=== PATIENT | female | born 1970 | race Caucasian/White ===

== ENCOUNTER 2022-06-14 13:45 | Outpatient (RCR) | payer OTHER, SELFPAY | END 2022-07-28 14:18 | disposition home or self-care (01) | PROVIDERS: Visit Provider Physician Assistant | DX: M54.50 Low back pain, unspecified (principal); Z51.89 Encounter for other specified aftercare | CPT/HCPCS: 97110; 97140; 97162; J0702 ==

== ENCOUNTER 2022-07-26 07:57 | Outpatient (CLI) | payer OTHER, SELFPAY ==
--- OUTSIDE RECORDS SUMMARY | 2022-07-26 08:00 | XMS_ITS | Clinical Summary ---
:1970 Author Organization [employer] [facility] [facility] [place] [address] Care Team Providers Name Role Phone Leonora Anamaria Phan DO Primary Care Provider Allergies Active Allergy Reactions Severity Noted Date Comments Adhesive Rash 10/14/2015 Tramadol Itching 05/13/2019 Unlisted Allergen (Include Runny Nose, Itching 010 Seasonal allergies Detail In Comments) Medications Medication Sig Dispensed Refills Start End Status Date Date MULTIVITAMIN TAB take 1 tablet 0 07/18/20 Active by oral route 07 once daily with food meclizine (ANTIVERT) Take 1 tablet 45 tablet 0 06/07/20 Active 25 mg by mouth 3 16 tabletIndications: times daily if Dizziness needed. cholecalciferol Take 1 capsule 0 10/23/19 Active (VITAMIN D) 1,000 by mouth once 18 unit capsule daily. Magnesium 200 mg tab Take 1 tablet 0 04/19/20 Active by mouth once 18 daily. vitamin B complex (B Take 1 tablet 0 09/19/20 Active COMPLEX 1) tablet by mouth once 18 daily. nicotine (COMMIT) 2 Place 1 Lozenge 108 Lozenge 2 05/30/20 Active mg in mouth, 19 lozengeIndications: between cheek & Tobacco use gum every hour while awake as needed for Nicotine Craving. omeprazole (PRILOSEC) TAKE 1 CAPSULE 90 capsule 0 06/24/20 Active 20 mg Delayed-Release BY MOUTH EVERY 19 capsuleIndications: DAY BEFORE A Abdominal pain, MEAL epigastric Echinacea 500 mg cap Take by mouth. 0 12/19/19 Active 20 calcium carbonate Take 1 tablet 0 05/22/20 Active (CALCIUM 600) 600 mg by mouth once 20 calcium (1,500 mg) daily. tablet durable medical DonJoy Hinged Lateral J Brace, Medium, Left 0 07/13/20 Active equipment [id number] Length of Use: 99 months 20 (DME)Indications: Chondromalacia of left knee diclofenac topical APPLY 2 G 1 Tube 2 12/18/19 A ctive (VOLTAREN) 1 % TOPICALLY TO 21 gelIndications: Left AFFECTED knee pain, AREA(S) 4 TIMES unspecified DAILY chronicity Ferrous Gluconate 324 Take 1 Tablet 0 04/26/20 Active mg (38 mg iron) (324 mg) by 21 tablet mouth once daily with a meal. ascorbic acid, Take 1 Tablet 0 04/26/20 A ctive vitamin C, (Vitamin (500 mg) by 21 C) 500 mg tablet mouth once daily. Bacillus coagulans Chew by mouth. 0 04/26/20 Active (Digestive Advantage 21 Probio-Pre) 400 million cell chew cetirizine (ZYRTEC) TAKE 1 TABLET 90 Tablet 0 08/12/20 Active 10 mg BY MOUTH ONCE 21 tabletIndications: DAILY Seasonal allergic rhinitis due to pollen DULoxetine (CYMBALTA) Take 1 Capsule 90 capsule. 3 09/21/20 Active 60 mg Delayed-release (60 mg) by 21 capsuleIndications: mouth once Fibromyalgia daily. busPIRone (BUSPAR) 10 Take 1 Tablet 360 tablet. 3 09/21/20 Active mg tabletIndications: (10 mg) by 21 MELECIO (generalized mouth 2 times anxiety disorder) daily. levothyroxine Take 1 Tablet 90 Tablet 3 11/13/19 Ac tive (SYNTHROID) 100 mcg (100 mcg) by 22 tabletIndications: mouth before Subclinical breakfast. hypothyroidism ipratropium (ATROVENT INSTILL 2 90 mL 2 12/03/19 Active NASAL) 42 mcg (0.06 SPRAYS IN EACH 22 %) nasal NOSTRIL THREE sprayIndications: TIMES A DAY Chronic rhinitis NEEDED SUMAtriptan (IMITREX) TAKE 1/2 TABLET 9 Tablet 5 12/03/19 Active 100 mg BY MOUTH EVERY 22 tabletIndications: 2 HOURS Migraine NEEDED FOR MIGRAINE *MAX DAILY DOSE: 200MG* propranoloL (INDERAL) Take 1 Tablet 180 Tablet 3 03/01/20 Active 10 mg (10 mg) by 22 tabletIndications: mouth 2 times Migraine syndrome daily. pregabalin (LYRICA) TAKE ONE (1) 60 Capsule 3 05/12/20 Active 150 mg CAPSULE BY 22 capsuleIndications: MOUTH TWICE Fibromyalgia DAILY *NEW DOSE* loperamide (IMODIUM) Take 4mg by 60 capsule 1 04/03/20 Discontinued 2 mg mouth with 1st 022 (*Pat ient capsuleIndications: loose stool, states no Chronic diarrhea then 2mg with longer each subsequent taki ng/Not on loose stool. sending Max 16 mg in 24 faci lity list) hrs psyllium powd Take 1 tsp by 1 Container 11 01/10/20 Discontinued mouth once 022 (*Patient daily if needed stat es no for longer Constipation. taking /Not on sending facility l ist) docusate (COLACE) 100 TK 1 C PO BID 0 11/11/1906/09 Discontinued mg capsule FOR 022 (*Patient CONSTIPATION states no longer taking/Not on sending facility l ist) methylPREDNISolone Take by mouth 21 Tablet 0 04/05/20 Discontinued (MedrolKevin,) 4 mg as instructed (*Patient tabletIndications: per packaging. states no Acute midline low lo nger back pain with takin g/Not on left-sided sciatica sending facility l ist) cyclobenzaprine Take 1-2 30 Tablet 2 04/05/20 Disc ontinued (FLEXERIL) 5 mg Tablets (5-10 022 (*Med tabletIndications: mg) by mouth 3 complete/Regim Acute midline low times daily if en back pain with needed for comp lete/Level left-sided sciatica Muscle Spasm. of care change) methylPREDNISolone Take by mouth 21 Tablet 0 04/29/20 Discontinued (Medrol Kevin,) 4 mg as instructed (*Patient tabletIndications: per packaging. 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 Fibromyalgia 05/19/2014 Migraine 08/01/2013 Major depressive disorder, recurrent episode, unspecif ied 04/25/2007 Anxiety state, unspecified 04/25/2007 Allergic rhinitis, cause unspecified 11/04/2006 Resolved Problems Problem Noted Date Resolved Date Pericarditis 03/01/2022 03/01/2022 Subclinical hypothyroidism 10/07/2014 12/21/2020 Encounters Date Type Specialty Care Team Description 07/21/2022 Telephone Pavel Morgan Letter For Wo rk MD Anastacio (Restrictions a nd return to work) 07/11/2022 Telephone Pavel Morgan Results (MRI) MD Anastacio 07/07/2022 Ancillary Procedure 07/07/2022 Travel 07/01/2022 Telephone Lashanda Gamboa Results (LA BS) LELE Almanza 06/27/2022 Office Visit Pavel Morgan Musculoskelet al Problem MD Anastacio (Low back pain ) 06/27/2022 Office Visit Lashanda Gamboa Fatigue (Ve ry tired x 1 LELE Almanza week, sleeping a lot / nausea also) 06/27/2022 Travel 05/12/2022 Refill Anamaria Lea Refill Reque st Emilie, DO (Pregabalin) 04/29/2022 Office Visit Marita Hathaway Back Pain (barbara oing back LELE Lema pain ) 04/29/2022 Travel 04/28/2022 Telephone Reina Mathews PA from Last 3 Months Immunizations Name Administration Dates Next Due AMB Influenza, IIV3 (Age >=3 07/10/2013 years)(Flu Clinic Only) COVID-19 vaccine ([employer] 12/01/2020, 11/10/2020 30mcg/0.3mL) PF, MDV Hepatitis B (Adult) 02/18/2010, 09/09/1994, 08/10/1994 Influenza, IIV3 (Age >=3 years) 07/10/2013, 07/15/2010, 08/10 Influenza, IIV4 08/27/2021, 06/29/2020, 06/09/2019, 06/08/2018, 07/20/2017, 06/23/2016, 08/03/2015, 07/03/2014 Td (Age >=7 Years) 05/13/2019, 01/02/2003 Tdap 12/28/2010 Zoster (Shingrix-RZV, recombinant) 08/27/2021 Family History Medical History Relation Name Comments Depression Brother 1 Hypertension Brother 1 possibly high ch olesterol as well as depression Depression Brother 2 COPD Father Thyroid Disease Maternal Aunt 1 Thyroid Disease Maternal Aunt 2 Asthma Maternal Grandmother Stroke Maternal Grandmother Diabetes Maternal Uncle type II Cancer Mother nasopharyngeal Hypothyroidism Mother Other cancer Mother nasal pharnyx ca ncer Diabetes Paternal Aunt type II Depression Sister Seizures Son 1 epileptic No Known Problems Son 2 Cancer-breast No Family History Relation Name Status Comments Brother 1 Alive Brother 2 Alive Father Alive Maternal Aunt 1 Maternal Aunt 2 Maternal Grandmother Maternal Uncle Mother Paternal Aunt Sister Alive Son 1 Alive Son 2 Alive Social History Tobacco Use Types Packs/Day Years Used Date Current Every Day Smoker Cigarettes 0.25 20 Smokeless Tobacco: Never Used Tobacco Cessation: Ready to Quit: No; Co unseling Given: Yes Comments: trying to quit 05/15/20 off and on since 20s Alcohol Use Standard Drinks/Week Comments Yes 0 (1 standard drink = 0.6 oz pure alcoho l) rarely Alcohol Habits Answer Date Recorded How often do you have a drink containing alcohol? 2-4 times a month 05/30/2019 How many drinks containing alcohol do you have on a 1 or 2 05/30/2019 typical day when you are drinking? How often do you have six or more drinks on one Never 03/25/2020 occasion? Comment: rarely 05/17/2021 Sex Assigned at Date Recorded Not on file COVID-19 Exposure Response Date Recorded In the last 10 days, have you been in contact with No / Unsu re 07/07/2022 9:31 AM CDT someone who was confirmed or suspected to have Coronavirus/COVID-19? Obstetrics History Para Term AB IAB SAB Ectopic Multiple Living Live Births 4 2 2 0 2 1 1 0 0 2 2 Date Outcome GA Total Labor/2nd/3rd Weight Sex Delivery Anes PTL Yumiko A 1 A5 Name Clin Labor IAB SAB 1991 Term 4.08 kg Vag Cyndie (9 lb) ng Comments: episiotomy 1994 Term 3.18 kg (7 lb) Vag Living Last Filed Vital Signs Vital Sign Reading Time Taken Comments Blood Pressure 117/73 06/27/2022 1:37 PM CDT Pulse 67 06/27/2022 1:37 PM CDT Temperature 36.9 ??C (98.4 ??F) 06/27/2022 1:37 PM CDT Respiratory Rate 16 07/12/2021 1:44 PM CDT Oxygen Saturation 99% 06/27/2022 1:37 PM CDT Inhaled Oxygen Concentration - - Weight 72.1 kg (159 lb) 06/27/2022 1:37 PM CDT Height 166 cm (5' 5.35) 06/27/2022 11:47 AM CDT Body Mass Index 26.17 06/27/2022 11:47 AM CDT Plan of Treatment Upcoming Encounters Date Type Specialty Care Team Description 07/26/2022 Office Visit Pavel Morgan MD [address] [place], [place] [address] (Wo rk) Health Maintenance Due Date Last Done Comments Pneumococcal series for age 19-64 1976 (1 - PCV) Hepatitis C screening for age 1210/06/1988 18-79 Zoster (shingles) series for age 0110/22/2021 08/27/2021 50+ (2 of 2) Lipids for age 45-75 11/10/2021 11/10/2016, 11/22/2012 COVID-19 vaccine series (4 - 11/18/2021 09/23/2021, 021, Booster for Pfizer series) 11/10/2020 Influenza for age 50-64 06/09/2022 08/27/2021, 06/29/2020, 06/09/2019, Additional history exists Mammogram for age 45-75 08/27/2022 08/27/2021, 07/31/2020, 07/16/2020, Additional history exists Depression screening for age 12+ 09/21/2022 09/21/2021, 06/2020, 07/16/2020, Additional history exists BMI (ht and wt on same day) for 06/27/2023 06/27/2022, 02/07, age 18+ 01/26/2021, Additional history exists Pap test for age 21-65 05/30/2024 05/30/2019, 05/30/2019, 10/21/2015, Additional history exists Colonoscopy through age 75 04/14/2027 04/14/2017, 7, 04/14/2017 Tetanus booster 05/13/2029 05/13/2019, 12/28/2010, 01/02/2003 Tdap Completed 12/28/2010 Procedures Procedure Name Priority Date/Time Associated Diagnosis Comme nts MR SPINE LUMBAR WO Routine 07/07/2022 10:24 Left lumbar pain Results for this AM CDT Lumbar radiculopathy procedu re are in the results section. CBC WITH AUTO Routine 06/27/2022 12:41 Fatigue, unspecified Re sults for this DIFFERENTIAL PM CDT type procedure are i n the results section. HETEROPHILE Routine 06/27/2022 12:41 Fatigue, unspecified Res ults for this PM CDT type procedure are i n the results section. TSH Routine 06/27/2022 12:41 Fatigue, unspecified Res ults for this PM CDT type procedure are i n the results section. FERRITIN Routine 06/27/2022 12:41 Fatigue, unspecified Res ults for this PM CDT type procedure are i n the results section. COMP METABOLIC PANEL Routine 06/27/2022 12:41 Fatigue, unspeci fied Results for this PM CDT type procedure are i n the results section. CBC WITH AUTO Routine 06/27/2022 12:41 Fatigue, unspecified Re sults for this DIFFERENTIAL PM CDT type procedure are i n the results section. from Last 3 Months Results MR SPINE LUMBAR WO (07/07/2022 10:24 AM CDT) Anatomical Region Laterality Modality Spine, LUMBAR SPINE Magnetic Resonance Specimen (Source) Anatomical Collection Method Collection Time Re ceived Time Location / / Volume Laterality 07/08/2022 1:05 PM CDT Impressions 07/08/2022 1:05 PM CDT 1. Minimal left L4-5 foraminal narrowing. 2. Milder degenerative changes within th e remainder of the lumbar spine as outlined above. Dictated by Dexter Wolf MD @ 1:05:58 PM (Electronically Signed) Narrative 07/08/2022 1:05 PM CDT For Patients: ??As a result of the Cures Act, medical imaging exams and procedure report s are released immediately into your [facility] [employer] medical record. ??You may view this report before your referring provider. ??If you have questions, please contact your health care provider. INDICATION: Low back pain radiating down left leg. TECHNIQUE: Noncontrast sagittal and axial T1, T2, a nd sagittal STIR sequences are provided. No comparisons. FINDINGS: The overall stature, alignment and intri nsic marrow signal of the lumbar spine is within normal limits. Conus is normal. L1-2: Unremarkable. L2-3: Mild broad-based posterior disc bu lge results in no significant central canal or foraminal narrowing. L3-4: Minor posterior disc bulge results in no central canal or foraminal narrowing. L4-5: Left posterior paracentral disc he rniation with underlying annular tear effaces the ventral thecal sac but results in no central canal narrowing. Minimal left and no right foraminal narrowing. L5-S1: Unremarkable. Procedure Note Ren Wolf, - 07/08/2022Format ting of this note might be different from the original. For Patients: As a result of the Cures Act, medical imaging exams and procedure reports are released immediately into your electronic medical record. You may view this report before your referring provider. If you have questions, please contact yo health care provider. INDICATION: Low back pain radiating down left leg. TECHNIQUE: Noncontrast sagittal and axial T1, T2, a nd sagittal STIR sequences are provided. No comparisons. FINDINGS: The overall stature, alignment and intri nsic marrow signal of the lumbar spine is within normal limits. Conus is normal. L1-2: Unremarkable. L2-3: Mild broad-based posterior disc bu lge results in no significant central canal or foraminal narrowing. L3-4: Minor posterior disc bulge results in no central canal or foraminal narrowing. L4-5: Left posterior paracentral disc he rniation with underlying annular tear effaces the ventral thecal sac but results in no central canal narrowing. Minimal left and no right foraminal narrowing. L5-S1: Unremarkable. IMPRESSION: 1. Minimal left L4-5 foraminal narrowing . 2. Milder degenerative changes within th e remainder of the lumbar spine as outlined above. Dictated by Dexter Wolf MD @ 2 1:05:58 PM (Electronically Signed) Pavel Morgan MD MR (ABNORMAL) CBC WITH AUTO DIFFERENTIAL (06/27/2022 12:41 PM CDT) [facility] Method Time Signature WHITE BLOOD 12.2 (H) 4.5 - 06/27/2022 [facility] COUNT 11.0 1:16 [facility] mm RED BLOOD COUNT 4.53 4.00 - 06/27/2022 [facility] 5.20 1:16 PM CDT [facility] CLINIC HEMOGLOBIN 14.6 12.0 - 06/27/2022 [facility] 16.0 g/dL 1:16 PM [facility] HEMATOCRIT 41.7 33.0 - 06/27/2022 [facility] 51.0 % 1:16 PM [facility] MCV 92 80 - 100 06/27/2022 [facility] fL 1:16 PM CDT [facility] MCH 32.2 26.0 - 06/27/2022 [facility] 34.0 pg 1:16 PM T [facility] MCHC 35.0 32.0 - 06/27/2022 [facility] 36.0 g/dL 1:16 PM [facility] RDW 13.5 11.5 - 06/27/2022 [facility] 15.5 % 1:16 PM T [facility] PLATELET COUNT 294 140 - 440 06/27/2022 [facility] thou/cu 1:16 PM [facility] CLINIC MPV 10.0 6.5 - 06/27/2022 [facility] 11.0 fL 1:16 PM T [facility] % NEUT 78.2 % 06/27/2022 [facility] 1:16 PM CDT [facility] % LYMPH 14.8 % 06/27/2022 [facility] 1:16 PM CDT [facility] % MONO 5.0 % 06/27/2022 [facility] 1:16 PM CDT [facility] % EOS 1.8 % 06/27/2022 [facility] 1:16 PM CDT [facility] % BASO 0.2 % 06/27/2022 [facility] 1:16 PM CDT [facility] ABSOLUTE 9.6 (H) 1.7 - 7.0 06/27/2022 [facility] NEUTROPHILS thou/cu 1:16 PM CDT [facility] CLINIC ABSOLUTE 1.8 0.9 - 2.9 06/27/2022 [facility] LYMPHOCYTES thou/cu 1:16 PM CDT [facility] CLINIC ABSOLUTE 0.6 <0.9 06/27/2022 [facility] MONOCYTES thou/cu 1:16 PM CDT [facility] CLINIC ABSOLUTE 0.2 <0.5 06/27/2022 [facility] EOSINOPHILS thou/cu 1:16 PM CDT [facility] CLINIC ABSOLUTE 0.0 <0.3 06/27/2022 [facility] BASOPHILS thou/cu 1:16 PM CDT [facility] CLINIC Specimen Anatomical Collection Method / Collection Time Recei alejo Time (Source) Location / Volume Laterality Blood BLOOD SPECIMEN / Venipuncture / 06/27/2022 12:41 06/27 Unknown Unknown PM CDT 12:41 PM CDT [facility] Performing Organization Address City/State/ZIP Code Phon e Number [facility] [address] [place] [address] TSH (06/27/2022 12:41 PM CDT) P athologist Signature TSH 2.30 0.35 - 4.94 06/28/2022 [facility] uIU/mL 9:47 PM CDT LABORATORY-CENTR AL LABORATORY Specimen Anatomical Collection Method / Collection Time Recei alejo Time (Source) Location / Volume Laterality Blood BLOOD SPECIMEN / Venipuncture / 06/27/2022 12:41 06/27 Unknown Unknown PM CDT 12:41 PM CDT Narrative [facility] LABORATORY-CENTRAL LABORAT ORY - 06/28/2022 9:47 PM CDT In Adults, TSH values between 5.00 and 10.00 uIU/ml do not necessarily indicate the presence of Hyp othyroidism. Correlation with clinical findings such as presence of goiter and/or Thyroperoxidase (TPO) Antibody ma y be helpful. For more information please refer to GERALDINE 20 ; [phone]: [phone]. Lashanda [facility] Performing Organization Address City/State/ZIP Code Phon e Number [facility] [address] [place] [address] LABORATORY-CENTRAL [address] LABORATORY HETEROPHILE (06/27/2022 12:41 PM CDT) athologist Signature HETEROPHILE Negative Negative 06/27/2022 [facility] 1:23 PM CDT [facility] Specimen Anatomical Collection Method / Collection Time Recei alejo Time (Source) Location / Volume Laterality Blood BLOOD SPECIMEN / Venipuncture / 06/27/2022 12:41 06/27 Unknown Unknown PM CDT 12:41 PM CDT Lashanda [facility] Performing Organization Address City/[facility]/ZIP Code Phon e Number [facility] [address] [place] [address] FERRITIN (06/27/2022 12:41 PM CDT) athologist [facility] FERRITIN 63.8 15.0 - 06/28/2022 [facility] 205.0 ng/mL 9:47 PM CDT LABORATORY-CENTR AL LABORATORY Specimen Anatomical Collection Method / Collection Time Recei alejo Time (Source) Location / Volume Laterality Blood BLOOD SPECIMEN / Venipuncture / 06/27/2022 12:41 06/27 Unknown Unknown PM CDT 12:41 PM CDT Lashanda [facility] Performing Organization Address City/State/ZIP Code Phon e Number [facility] [address] [place] [address] LABORATORY-CENTRAL [address] LABORATORY COMP METABOLIC PANEL (06/27/2022 12:41 PM CDT) P athologist Signature SODIUM 140 135 - 145 06/28/2022 [facility] mmol/L 9:26 PM CDT LABORATORY-[facility] TRAL LABORATORY POTASSIUM 4.9 3.5 - 5.0 06/28/2022 [facility] mmol/L 9:26 PM CDT LAB[facility]ATORY-[facility] TRAL LABORATORY CHLORIDE 107 98 - 110 06/28/2022 [facility] mmol/L 9:26 PM CDT LABORATORY-[facility] TRAL LABORATORY CO2,TOTAL 24 21 - 31 06/28/2022 [facility] mmol/L 9:26 PM CDT LABORATORY-[facility] TR[facility] LABORATORY ANION GAP 9 5 - 18 06/28/2022 [facility] 9:26 PM CDT LABORATORY-[facility] TRAL LABORATORY GLUCOSE 77 65 - 100 06/28/2022 [facility] mg/dL 9:26 PM CDT LABORATORY-[facility] TRAL LABORATORY CALCIUM 9.1 8.5 - 10.5 06/28/2022 [facility] mg/dL 9:26 PM CDT LAB[facility]ATORY-[facility] TR[facility] LABORATORY BUN 11 8 - 25 06/28/2022 [facility] mg/dL 9:26 PM CDT LABORATORY-[facility] TRAL LABORATORY CREATININE 0.75 0.57 - 06/28/2022 [facility] 1.11 mg/dL 9:26 PM CDT LABORATORY-[facility] TRAL LABORATORY BUN/CREAT RATIO 15 10 - 20 06/28/2022 [facility] 9:26 PM CDT LABORATORY-[facility] TRAL LABORATORY ALBUMIN 4.2 3.5 - 5.2 06/28/2022 [facility] g/dL 9:26 PM CDT LABORATORY-[facility] TRAL LABORATORY PROTEIN,TOTAL 6.6 6.0 - 8.0 06/28/2022 [facility] g/dL 9:26 PM CDT LABORATORY-[facility] TRAL LABORATORY GLOBULIN 2.4 2.0 - 3.7 06/28/2022 [facility] g/dL 9:26 PM CDT LABORATORY-[facility] TRAL LABORATORY A/G RATIO 1.8 1.0 - 2.0 06/28/2022 [facility] 9:26 PM CDT LABORATORY-[facility] TRAL LABORATORY BILIRUBIN,TOTAL 0.6 0.2 - 1.2 06/28/2022 [facility] mg/dL 9:26 PM CDT LABORATORY-[facility] TRAL LABORATORY ALK PHOSPHATASE 69 50 - 136 06/28/2022 [facility] IU/L 9:26 PM CDT LABORATORY-[facility] TRAL LABORATORY ALT (SGPT) 12 8 - 45 06/28/2022 [facility] IU/L 9:26 PM CDT LABORATORY-[facility] TRAL LABORATORY AST (SGOT) 14 2 - 40 06/28/2022 [facility] IU/L 9:26 PM CDT LABORATORY-[facility] TRAL LABORATORY eGFR >90 >90 06/28/2022 [facility] mL/min/1.7 9:26 PM CDT LABORATORY-[facility] 3m2 TRAL LABORATORY Comment: As of 2021, eGFR is calcu lated by the CKD-EPI creatinine equation without race adjustment. eGFR can be inf luenced by muscle mass, exercise, and diet. The reported eGFR is an estimation only and is only applicable if the renal function is stable. Specimen Anatomical Collection Method / Collection Time Recei alejo Time (Source) Location / Volume Laterality Blood BLOOD SPECIMEN / Venipuncture / 06/27/2022 12:41 06/27 Unknown Unknown PM CDT 12:41 PM CDT [facility] Performing Organization Address City/State/ZIP Code Phon e Number [facility] [address] [place] [address] LABORATORY-CENTRAL [address] LABORATORY from Last 3 Months Insurance Payer Benefit Plan / Subscriber ID Effective Dates Phone Addre ss Type Group WC WORKERS COMP WC RADHAWNGOZI [id number] 2014-Prese [id number] [employer] [facility] [address] [place] [address] WC WORKERS COMP WC [place] [id number] 2020-Prese 200 0 [employer] [facility] [address] [place] [address] WC WORKERS COMP WC SFM [id number] 2021-Prese [address] [place] [address] BLUE [employer]OSS [employer] OF [id number] 2014-Presen [address] [facility] [address] [place] [address] PREFERRED ONE PREFERRED ONE [id number] 2022-Presen [address] [place] [address] Diana Sandra Personal/Family Self [id number] (Home) [place] [id number] Diana Sandra Workers Comp Self [id number] [place] (Home) [place] [id number] Diana Sandra Comp Self [id number] ([place]) [place] [id number] Care Teams 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
== END 2022-07-26 07:58 | disposition home or self-care (01) ==
LOC: INJ CL 07:58
PROVIDERS: PCP Family Medicine; Visit Provider Family Medicine
DX: M54.16 Radiculopathy, lumbar region (principal); M51.36 Other intervertebral disc degeneration, lumbar region
CPT/HCPCS: 62323; J0702; Q9966

== ENCOUNTER 2022-09-14 14:23 | Emergency (ER) | payer OTHER, SELFPAY ==
[2022-09-14 14:33] VITALS: BP 161/107; PULSE 79; RESP 16; O2SAT 100; BMI 27.3
--- NOTE | 2022-09-14 14:47 | ED_ITS ---
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 Phani youssef, she did epidural steroids in the past she has had lumbar spondylosis and degenerative disc disease as well as disc herniations by her report. She describes couple days of significant low back pain. No radicular symptoms, no bowel or bladder continence fever chills perineal numbness patient presents to ED, she is apparently unable to get into the clinic. Related Data Home Medications Medication Instructions Recorded Confirmed duloxetine 60 mg capsule,delayed mg PO 09/14/22 release levothyroxine 100 mcg tablet mcg 09/14/22 pregabalin 150 mg capsule mg 09/14/22 pregabalin 75 mg capsule mg 09/14/22 propranolol 10 mg tablet mg 09/14/22 Previous Rx's Medication Instructions Recorded ketorolac 10 mg tablet 10 mg PO TID PRN pain 3 days #10 09/14/22 tabs prednisone 20 mg tablet 20 mg PO BID #10 tabs 09/14/22 tramadol 50 mg tablet 50 mg PO Q8H PRN pain #14 tabs 09/14/22 Allergies Allergy/AdvReac Type Severity Reaction Status Date / Time Unable to Assess Allergy Unverified 09/14/22 14:37 Review of Systems Status of ROS: Reports: 6 or more systems reviewed and unremarkable except as noted in History and below PFSH PFSH Social History Smoking Status: Never smoker Do you use any of these nicotine containing products: None Second hand tobacco smoke exposure: No How often do you have a drink containing alcohol: never How often do you have six or more drinks on one occasion: Never AUDIT-C Alcohol total score: 0 Non-prescribed substance use: denies use service: No Exam Narrative: Exam Narrative: Patient has mild palpable tenderness to her mid low back along her belt line, limited range of motion of flexion extension she has normal strength sensation lower extremities she has negative straight leg raise bilaterally She denies bowel or bladder symptoms Const: Vital Signs, click to edit/add: Vital Signs - 24 hr 09/14/22 14:33 Pulse Rate [Left P ulse Oximeter] 79 Respiratory Rate 16 Blood Pressure [Le ft Upper Arm] 161/107 H Pulse Oximetry 100 Oxygen Delivery Me thod Room Air Course Vital Signs Vital signs: Initial Vital Signs Pulse Rate 79 09/14/22 14:33 Pulse Rhythm 09/14/22 14:33 Pulse Strength 3+ Normal 09/14/22 14:33 Respiratory Rate 16 09/14/22 14:33 Blood Pressure 161/107 H 09/14/22 14:33 Blood Pressure Mean 125 09/14/22 14:33 Blood Pressure Position Sitting 09/14/22 14:33 Pulse Oximetry 100 09/14/22 14:33 Oxygen Delivery Method 09/14/22 14:33 Vital Signs Pulse Rate 79 09/14/22 14:33 Respiratory Rate 16 09/14/22 14:33 Blood Pressure 161/107 H 09/14/22 14:33 Pulse Oximetry 100 09/14/22 14:33 Oxygen Delivery Method 09/14/22 14:33 Pulse Rate 79 09/14/22 14:33 Respiratory Rate 16 09/14/22 14:33 Blood Pressure 161/107 H 09/14/22 14:33 Pulse Oximetry 100 09/14/22 14:33 Oxygen Delivery Method 09/14/22 14:33 Medical Decision Making MDM Narrative Medical decision making narrative: Patient has known lumbar spondylosis, does not have radicular component complaint of pain right now. I would recommend prednisone 50 mg orally and Tor adol 60 mg IM she needs to drive home. Will give her Toradol 10 mg t.i.d. p.r.n. over the next 3 days, Ultram 1-1 every 4-6 hours as needed 14 written for, also prednisone 20 mg b.i.d. x5 days. Off work for 2 days, recheck with primary care as needed or planned. Return to ED sooner if issues Discharge Plan Discharge Clinical Impression: Strain of lumbar region, Lumbar spondylosis Patient Disposition: Home, Self-Care Condition: Stable Additional Instructions: Light activity, ice to the back, gentle position of comfort, Toradol and prednisone as indicated, may use some Ultram periodically if it is really uncomfortable. Off work for 2 days, recheck as needed in the ER otherwise follow up with primary care in the next couple of days by phone for update Activity Level: Light activity Activity Detail: Off work x2 days Discharge Diet: Regular Prescriptions: New ketorolac 10 mg tablet 10 mg PO TID PRN (Reason: pain) 3 Days Qty: 10 0RF tramadol 50 mg tablet 50 mg PO Q8H PRN (Reason: pain) Qty: 14 0RF prednisone 20 mg tablet 20 mg PO BID Qty: 10 0RF No Action levothyroxine 100 mcg tablet propranolol 10 mg tablet duloxetine 60 mg capsule,delayed release(DR/EC) PO pregabalin 75 mg capsule pregabalin 150 mg capsule Follow Up/Referrals: Anamaria Lea DO [Primary Care Provider] - Stand Alone Forms: [facility] Info Instructions
--- OUTSIDE RECORDS SUMMARY | 2022-09-14 14:53 | XMS_ITS | Clinical Summary ---
:1970 Author Organization [employer] [facility] [place] [address] Care Team Providers Name Role Phone Leonora Anamaria Phan DO Primary Care Provider Allergies Active Allergy Reactions Severity Noted Date Comments Adhesive Rash 10/14/2015 Tramadol Itching 05/13/2019 Unlisted Allergen (Include Runny Nose, Itching 010 Seasonal allergies Detail In Comments) Medications Medication Sig Dispensed Refills Start End Date Status Date MULTIVITAMIN TAB take 1 tablet 0 Active by oral route 7 once daily with food meclizine Take 1 tablet 45 tablet 0 Active (ANTIVERT) 25 mg by mouth 3 6 tabletIndications: times daily Dizziness if needed. cholecalciferol Take 1 0 Acti ve (VITAMIN D) 1,000 capsule by 8 unit capsule mouth once daily. Magnesium 200 mg Take 1 tablet 0 Active tab by mouth once 8 daily. vitamin B complex Take 1 tablet 0 Active (B COMPLEX 1) by mouth once 8 tablet daily. nicotine (COMMIT) 2 Place 1 108 Lozenge 2 Active mg Lozenge in 9 lozengeIndications: mouth, Tobacco use between cheek & gum every hour while awake as needed for Nicotine Craving. omeprazole TAKE 1 90 capsule 0 Active (PRILOSEC) 20 mg CAPSULE BY 9 Delayed-Release MOUTH EVERY capsuleIndications: DAY BEFORE A Abdominal pain, MEAL epigastric Echinacea 500 mg Take by 0 Act sergey cap mouth. 0 calcium carbonate Take 1 tablet 0 Active (CALCIUM 600) 600 by mouth once 0 mg calcium (1,500 daily. mg) tablet durable medical DonJoy Hinged Lateral J Brace, Medium, Left 0 Active equipment [id number] [id number] Length of Use: 99 months 0 (DME)Indications: Chondromalacia of left knee diclofenac topical APPLY 2 G 1 Tube 2 A ctive (VOLTAREN) 1 % TOPICALLY TO 1 gelIndications: AFFECTED Left knee pain, AREA(S) 4 unspecified TIMES DAILY chronicity Ferrous Gluconate Take 1 Tablet 0 Active 324 mg (38 mg iron) (324 mg) by 1 tablet mouth once daily with a meal. ascorbic acid, Take 1 Tablet 0 A ctive vitamin C, (Vitamin (500 mg) by 1 C) 500 mg tablet mouth once daily. Bacillus coagulans Chew by 0 A ctive (Digestive mouth. 1 Advantage Probio-Pre) 400 million cell chew cetirizine (ZYRTEC) TAKE 1 TABLET 90 Tablet 0 Active 10 mg BY MOUTH ONCE 1 tabletIndications: DAILY Seasonal allergic rhinitis due to pollen ipratropium INSTILL 2 90 mL 2 Active (ATROVENT NASAL) 42 SPRAYS IN 2 mcg (0.06 %) nasal EACH NOSTRIL sprayIndications: THREE TIMES A Chronic rhinitis DAY NEEDED SUMAtriptan TAKE 1/2 9 Tablet 5 Active (IMITREX) 100 mg TABLET BY 2 tabletIndications: MOUTH EVERY 2 Migraine HOURS NEEDED FOR MIGRAINE *MAX DAILY DOSE: 200MG* busPIRone (BUSPAR) Take 1 Tablet 360 Tablet 3 Active 10 mg (10 mg) by 2 tabletIndications: mouth two MELECIO (generalized times daily. anxiety disorder) DULoxetine Take 1 90 Capsule 3 Active (CYMBALTA) 60 mg Capsule (60 2 Delayed-release mg) by mouth capsuleIndications: once daily. Fibromyalgia propranoloL Take 1 Tablet 180 Tablet 3 Act sergey (INDERAL) 10 mg (10 mg) by 2 tabletIndications: mouth two Migraine syndrome times daily. pregabalin (LYRICA) Take 1 60 Capsule 3 Active 150 mg Capsule (150 2 capsuleIndications: mg) by mouth Fibromyalgia two times daily. levothyroxine Take 1 Tablet 90 Tablet 3 Ac tive (SYNTHROID) 100 mcg (100 mcg) by 2 tabletIndications: mouth before Subclinical breakfast. hypothyroidism DULoxetine Take 1 90 capsule. 3 08/16/20 Discont inued (CYMBALTA) 60 mg Capsule (60 1 22 ( Reorder Delayed-release mg) by mouth ( E-cancel not capsuleIndications: once daily. sent)) Fibromyalgia busPIRone (BUSPAR) Take 1 Tablet 360 tablet. 3 08/16 Discontinued 10 mg (10 mg) by 1 22 (Reorder tabletIndications: mouth 2 times (E-cancel not MELECIO (generalized daily. sen t)) anxiety disorder) levothyroxine Take 1 Tablet 90 Tablet 3 08/16/20 Di scontinued (SYNTHROID) 100 mcg (100 mcg) by 2 22 (Reorder tabletIndications: mouth before (E-cancel not Subclinical breakfast. sent)) hypothyroidism propranoloL Take 1 Tablet 180 Tablet 3 08/16/20 Dis continued (INDERAL) 10 mg (10 mg) by 2 22 (Re order tabletIndications: mouth 2 times (E-cancel not Migraine syndrome daily. se nt)) pregabalin (LYRICA) TAKE ONE (1) 60 Capsule 3 Discontinued 150 mg CAPSULE BY 2 22 (Reorder capsuleIndications: MOUTH TWICE (E-cancel not Fibromyalgia DAILY *NEW sent)) DOSE* Active Problems Problem Noted Date Restless legs [...] Encounters Date Type Specialty Care Team Description 09/14/2022 Telephone Pavel Morgan Questions MD Anastacio 08/15/2022 Telephone Anamaria Lea Medication M anagement Emilie, DO 08/03/2022 Telephone Pavel Morgan Appointment R equest (4 MD Anastacio week follow up) 07/26/2022 Office Visit Pavel Morgan Procedure (L4 -5 ILESI) MD Anastacio 07/26/2022 Orders Only Scanner <No scans attac hed> 07/21/2022 Telephone Pavel Morgan Letter For Wo [...] a lot / nausea also) 06/27/2022 Travel from Last 3 Months Immunizations Name Administration Dates Next Due AMB Influenza, IIV3 (Age >=3 07/10/2013 years)(Flu Clinic Only) COVID-19 vaccine (Built [place] 12/01/2020, 11/10/2020 30mcg/0.3mL) MD STANISLAVV Hepatitis B (Adult) 02/18/2010, 09/09/1994, 08/10/1994 Influenza, [...] Assigned at Date Recorded Not on file Obstetrics History Para Term AB IAB SAB [...] Encounters Date Type Specialty Care Team Description 09/15/2022 Ancillary Procedure 10/10/2022 Office Visit Pavel Morgan MD [address] [place], [place] [address] (Wo rk) Health Maintenance [...] wt on same day) for 06/27/2023 06/27/2022, 05/2 01/2022, age 18+ 01/26/2021, Additional history exists Pap test for age 21-65 05/30/2024 05/30/2019, 05/30/2019, 10/21/2015, Additional history exists Colonoscopy through age 75 04/14/2027 04/14/2017, 7, 04/14/2017 Tetanus booster 05/13/2029 05/13/2019, 12/28/2010, 01/02/2003 HIV for age 15-65 Completed 02/18/2010 Tdap Completed 12/28/2010 Procedures Procedure Name Priority Date/Time Associated Diagnosis Comme nts AMB EPIDURAL STEROID Routine 07/26/2022 8:00 Left lumbar pain INJECTION AM CDT SCAN-OPERATIVE/PROCED 07/26/2022 12:00 Re sults for this URE REPORT AM CDT procedure are i n the results section. MR SPINE LUMBAR WO Routine 07/07/2022 10:24 [...] results section. from Last 3 Months Results SCAN-OPERATIVE/PROCEDURE REPORT (07/26/2022 12:00 AM CDT) Narrative This result has an attachment that is no t available. Scanner OTHER MR SPINE LUMBAR WO (07/07/2022 10:24 AM [...] report s are released immediately into your [employer] medical record. ??You may view this report [...] WITH AUTO DIFFERENTIAL (06/27/2022 12:41 PM CDT) [facility] Method Time Signature WHITE BLOOD 12.2 (H) 4.5 - 06/27/2022 [facility] COUNT 11.0 1:16 PM CDT [facility]/ CLINIC mm RED BLOOD COUNT 4.53 4.00 - 06/27/2022 [facility] 5.20 1:16 PM CDT [facility] CLINIC HEMOGLOBIN 14.6 12.0 - 06/27/2022 [facility] 16.0 g/dL 1:16 PM [facility] HEMATOCRIT 41.7 33.0 - 06/27/2022 [facility] 51.0 % 1:16 PM [facility] MCV 92 80 - 100 06/27/2022 [facility] fL 1:16 PM [facility] MCH 32.2 26.0 - 06/27/2022 [facility] 34.0 pg 1:16 PM [facility] MCHC 35.0 32.0 - 06/27/2022 [facility] 36.0 g/dL 1:16 PM [facility] RDW 13.5 11.5 - 06/27/2022 [facility] 15.5 % 1:16 PM T [facility] PLATELET COUNT 294 140 - 440 [facility]16 PM T [facility] CLINIC MPV 10.0 6.5 - 06/27/2022 [facility] 11.0 fL 1:16 PM [facility] % NEUT 78.2 % 06/27/2022 [facility] 1:16 PM CDT [facility] % LYMPH 14.8 % 06/27/2022 [facility] 1:16 PM CDT [facility] % MONO 5.0 % 06/27/2022 [facility] 1:16 PM CDT [facility] % EOS 1.8 % 06/27/2022 [facility] 1:16 PM CDT [facility] % BASO 0.2 % 06/27/2022 [facility] 1:16 PM CDT [facility] ABSOLUTE 9.6 (H) 1.7 - 7.0 06/27/2022 [facility] NEUTROPHILS thou/cu 1:16 PM CDT [facility] CLINIC ABSOLUTE 1.8 0.9 - 2.9 06/27/2022 [facility] LYMPHOCYTES thou/cu 1:16 PM CDT [facility] CLINIC ABSOLUTE 0.6 <0.9 06/27/2022 [facility] MONOCYTES thou/cu 1:16 PM CDT [facility] CLINIC ABSOLUTE 0.2 <0.5 06/27/2022 [facility] EOSINOPHILS thou/cu 1:16 PM CDT [facility] CLINIC ABSOLUTE 0.0 <0.3 06/27/2022 [facility] BASOPHILS thou/cu 1:16 PM CDT [facility] CLINIC Specimen Anatomical Collection Method / Collection Time Recei alejo Time (Source) Location / Volume Laterality Blood BLOOD SPECIMEN / Venipuncture / 06/27/2022 12:41 06/27 Unknown Unknown PM CDT 12:41 PM CDT [facility] Performing Organization Address City/State/ZIP Code Phon e Number [facility] [address] [place] [address] TSH (06/27/2022 12:41 PM CDT) P athologist Signature TSH 2.30 0.35 - 4.94 06/28/2022 [facility] uIU/mL 9:47 PM CDT LABORATORY-CENTR AL LABORATORY Specimen Anatomical Collection Method / Collection Time Recei alejo Time (Source) Location / Volume Laterality Blood BLOOD SPECIMEN / Venipuncture / 06/27/2022 12:41 06/27 Unknown Unknown PM CDT 12:41 PM CDT Narrative [facility] LABORATORY-CENTRAL LABORAT ORY - 06/28/2022 9:47 PM CDT In Adults, TSH values between 5.00 and 10.00 uIU/ml do not necessarily indicate the presence of Hyp othyroidism. Correlation with clinical findings such as presence of goiter and/or Thyroperoxidase (TPO) Antibody ma y be helpful. For more information please refer to GERALDINE 26 01; 291: [phone]. [facility] Performing Organization Address City/State/ZIP Code Phon e Number [facility] [address] [place] [address] LABORATORY-CENTRAL [address] LABORATORY HETEROPHILE (06/27/2022 12:41 PM CDT) athologist Signature HETEROPHILE Negative Negative 06/27/2022 [facility] 1:23 PM CDT [facility] Specimen Anatomical Collection Method / Collection Time Recei alejo Time (Source) Location / Volume Laterality Blood BLOOD SPECIMEN / Venipuncture / 06/27/2022 12:41 06/27 Unknown Unknown PM CDT 12:41 PM CDT [facility] Performing Organization Address City/[facility]/ZIP Code Phon e Number [facility] [address] [place] [address] FERRITIN (06/27/2022 12:41 PM CDT) athologist [facility] FERRITIN 63.8 15.0 - 06/28/2022 [facility] 205.0 ng/mL 9:47 PM CDT LABORATORY-CENTR AL LABORATORY Specimen Anatomical Collection Method / Collection Time Recei alejo Time (Source) Location / Volume Laterality Blood BLOOD SPECIMEN / Venipuncture / 06/27/2022 12:41 06/27 Unknown Unknown PM CDT 12:41 PM CDT [facility] Performing Organization Address City/[facility]/ZIP Code Phon e Number [facility] [address] [place] [address] LABORATORY-CENTRAL 2000 LABORATORY COMP METABOLIC PANEL (06/27/2022 12:41 PM CDT) athologist Signature SODIUM 140 135 - 145 06/28/2022 [facility] mmol/L 9:26 PM CDT [facility] TRAL LABORATORY POTASSIUM 4.9 3.5 - 5.0 06/28/2022 [facility] mmol/L 9:26 PM CDT [facility]OR[facility] CHLORIDE 107 98 - 110 06/28/2022 [facility] mmol/L 9:26 PM CDT [facility] CO2,TOTAL 24 21 - 31 06/28/2022 [facility] mmol/L 9:26 PM CDT [facility] ANION GAP 9 5 - 18 06/28/2022 [facility] 9:26 PM CDT [facility] GLUCOSE 77 65 - 100 06/28/2022 [facility] mg/dL 9:26 PM CDT [facility] CALCIUM 9.1 8.5 - 10.5 06/28/2022 [facility] mg/dL 9:26 PM CDT [facility] BUN 11 8 - 25 06/28/2022 [facility] mg/dL 9:26 PM CDT [facility] CREATININE 0.75 0.57 - 06/28/2022 [facility] 1.11 mg/dL 9:26 PM CDT [facility] BUN/CREAT RATIO 15 10 - 20 06/28/2022 [facility] 9:26 PM CDT [facility] ALBUMIN 4.2 3.5 - 5.2 06/28/2022 [facility] g/dL 9:26 PM CDT [facility] PROTEIN,TOTAL 6.6 6.0 - 8.0 06/28/2022 [facility] g/dL 9:26 PM CDT [facility] GLOBULIN 2.4 2.0 - 3.7 06/28/2022 [facility] g/dL 9:26 PM CDT [facility] A/G RATIO 1.8 1.0 - 2.0 06/28/2022 [facility] 9:26 PM CDT [facility] BILIRUBIN,TOTAL 0.6 0.2 - 1.2 06/28/2022 [facility] mg/dL 9:26 PM CDT [facility] ALK PHOSPHATASE 69 50 - 136 06/28/2022 [facility] IU/L 9:26 PM CDT [facility] ALT (SGPT) 12 8 - 45 06/28/2022 [facility] IU/L 9:26 PM CDT [facility] AST (SGOT) 14 2 - 40 06/28/2022 [facility] IU/L 9:26 PM CDT [facility]OR[facility]ORY eGFR >90 >90 06/28/2022 [facility] mL/min/1.7 9:26 PM CDT LABORATORY-[facility] 3m2 TRAL LABORATORY Comment: As of 2021, [...] Organization Address City/State/ZIP Code Phon e Number [email or web address] [address] [place] [address] LABORATORY-CENTRAL [address] LABORATORY from Last 3 Months Insurance Payer Benefit Plan / Subscriber ID Effective Dates Phone Addre ss Type Group WC WORKERS COMP WC JACKI [id number] 2014-Prese [id number] [employer] [facility] [address] [place] [address] WC WORKERS COMP WC RADHAWNGOZI [id number] 2020-Prese [id number] [employer] [place] [address] [place] [address] WC WORKERS COMP WC SFM [id number] 2021-Prese [address] [place] [address] [employer] [id number] 2014-Presen [address] [place] [address] [address] [place] [address] PREFERRED ONE PREFERRED ONE [id number] 2022-Presen [address] [place] [address] Diana Sandra Personal/Family Self [id number] (Home) [place] [id number] Diana Sandra Workers Comp Self 1970 [id number] [place] (Home) [place] [id number] Diana Sandra Comp Self 1970 [id number] [place]) [place] [id number] Care Teams Behavioral Medical Director Relationship Specialty Start Date End Date Anamaria Lea DO PCP - General Family Practice 10/25/[address] [place] [address]
[2022-09-14] MEDS: KETOROLAC 30 MG/ML inj 60 MG IM (14:54)
[2022-09-14] MEDS: predniSONE 10 MG TABLET 50 MG PO (14:54)
== END 2022-09-14 15:22 | disposition home or self-care (01) ==
LOC: ED 14:51
PROVIDERS: Emergency Provider Family Medicine; PCP Family Medicine
DX: S39.012A Strain of muscle, fascia and tendon of lower back, initial encounter (principal); X58.XXXA Exposure to other specified factors, initial encounter; Y93.9 Activity, unspecified; M47.816 Spondylosis without myelopathy or radiculopathy, lumbar region
CPT/HCPCS: 96372; 99283; J1885; J7512

== ENCOUNTER 2022-10-25 07:21 | Outpatient (CLI) | payer OTHER, SELFPAY | END 2022-10-25 07:22 | disposition home or self-care (01) | PROVIDERS: PCP Family Medicine; Visit Provider Family Medicine | DX: M54.16 Radiculopathy, lumbar region (principal); M51.36 Other intervertebral disc degeneration, lumbar region | CPT/HCPCS: 64483; J1100; Q9966 ==

== ENCOUNTER 2023-09-01 08:58 | Outpatient (CLI) | payer OTHER, SELFPAY | END 2023-09-01 08:59 | disposition home or self-care (01) | PROVIDERS: PCP Family Medicine; Visit Provider Family Medicine | DX: M54.16 Radiculopathy, lumbar region (principal) | CPT/HCPCS: 64483; J1100; Q9966 ==

== ENCOUNTER 2024-03-14 11:40 | Emergency (ER) | payer OTHER, SELFPAY ==
[2024-03-14 11:48] VITALS: BP 135/95; PULSE 67; RESP 16; O2SAT 99; BMI 25.6
[2024-03-14 11:50] VITALS: O2SAT 99
--- NOTE | 2024-03-14 12:13 | CRLHL7_ITS ---
For Patients: As a result of the Century Cures Act, medical imaging exams and procedure reports are released immediately into your electronic medical record. You may view this report before your referring provider. If you have questions, please contact your health care provider. Indication: Shortness of breath Technique: Chest 1 view Comparison: None Findings/Impression: Cardiovascular and mediastinum: Heart size and vasculature are normal in caliber and appearance. Lungs and pleural space: Lungs are clear. No sign of infiltrate or mass. No sign of pleural effusion. No pneumothorax. Bones and soft tissues: No acute findings. Dictated by Davidson Brunson MD @ 03/14/2024 1:15:17 PM (Electronically Signed)
--- NOTE | 2024-03-14 12:13 | ED.GENADULT ---
HPI - General Adult General Chief complaint: Shortness of Breath/Dyspnea Stated complaint: High BP light headed chest tightness Time Seen by Provider: 03/14/24 12:02 Source: patient, RN notes reviewed and old records reviewed Mode of arrival: ambulatory Limitations: no limitations History of Present Illness HPI narrative: Patient is a 53-year-old woman with a past medical history of hypertension and tobacco use, here with her boyfriend for evaluation of some central and right-sided chest pain which started yesterday. She says that they been under quite a bit of stress, they both have parents with health problems and they have been arguing a lot. I spoke with her in private, she denies any physical violence at home, but does say they have been arguing a lot and this has been a source of stress for her. She has had constant discomfort in her chest since last night, and was concerned because her blood pressure this morning was 160/103. She does not have pleuritic pain or shortness of breath, fevers, cough, unusual leg pain or swelling, pain does not radiate. She has not had nausea or vomiting. She does note that she gets chest pain when she has anxiety or panic, and feels that this is probably what is going on today although she is not sure. She has never had an evaluation of her heart. She is trying to cut back on smoking. Drinks very rarely. Boyfriend is here and was appropriate and kind toward her. Related Data Home Medications ?Medication ?Instructions ?Recorded ?Confirmed duloxetine 60 mg capsule,delayed mg PO 09/14/22 release levothyroxine 100 mcg tablet mcg 09/14/22 pregabalin 150 mg capsule mg 09/14/22 pregabalin 75 mg capsule mg 09/14/22 propranolol 10 mg tablet mg 09/14/22 Previous Rx's ?Medication ?Instructions ?Recorded ketorolac 10 mg tablet 10 mg PO TID PRN pain 3 days #10 09/14/22 tabs prednisone 20 mg tablet 20 mg PO BID #10 tabs 09/14/22 tramadol 50 mg tablet 50 mg PO Q8H PRN pain #14 tabs 09/14/22 Allergies Allergy/AdvReac Type Severity Reaction Status Date / Time adhesive AdvReac Intermediate Verified 03/14/24 11:47 ketorolac [From Toradol] AdvReac Unknown Verified 03/14/24 11:47 tramadol AdvReac Verified 03/14/24 11:47 Review of Systems Status of ROS: Reports: 10 or more systems reviewed and unremarkable except as noted in History and below [facility] Social History Smoking Status: Current some day smoker What tobacco products do you use: cigarettes Do you use any of these nicotine containing products: None Second hand tobacco smoke exposure: No How often do you have a drink containing alcohol: 2-4 times a month How many standard drinks containing alcohol do you have on a typical day: 1 or 2 How often do you have six or more drinks on one occasion: Never AUDIT-C Alcohol total score: 2 Non-prescribed substance use: marijuana (any form) service: No Exam Narrative: Exam Narrative: Vital signs as noted above. In general, an alert, well-appearing patient. Smells of tobacco smoke. Head: Normocephalic, atraumatic. Eyes: Pupils are equal reactive. Extraocular movements are full. Conjunctivae are normal. ENT: Mucous membranes are moist. Throat is normal. Neck: Supple without lymphadenopathy. Heart: Regular rate and rhythm. No murmur or rub. Lungs: Clear bilaterally. No increased work of breathing, crackles or wheezes. Abdomen: Soft and nontender. No organomegaly. Extremities: Well perfused. No edema. No calf tenderness. Pulses intact. Neurologic: Patient is alert and oriented to person and place. Speech is fluent. Face is symmetric. Moves all extremities equally. Affect: Normal. Skin: Warm and dry. Well perfused. Const: Vital Signs, click to edit/add: Vital Signs - 24 hr 03/14/24 11:48 03/14/24 11:50 Pulse Rate [Pulse Oximeter] 67 Respiratory Rate 16 Blood Pressure [Ri ght Upper Arm] 135/95 H Pulse Oximetry 99 99 Oxygen Delivery Me thod Room Air Course Course ED Course: Patient had an EKG on arrival, this shows a ventricular rate of 66, normal sinus. No acute ST segment changes, unremarkable T-waves. Initial troponin is 0 and I think will single troponin is adequate given that she has had symptoms for over 12 hours. Chest x-ray by my review is unremarkable, final radiology read is negative. Other labs show a D-dimer of 0.25, white blood cell count is mildly elevated at 12.7, of uncertain significance as an isolated finding. Hemoglobin is 15.3. Metabolic panel is normal, LFTs are normal, CRP is less than 0.5. Lipase normal at 85. I gave her aspirin I also gave her Ativan which she felt was helpful. At this time, etiology of her pain is unclear, diagnostic considerations included acute coronary syndrome or angina, pneumonia, pneumothorax, congestive heart failure, biliary colic or cholecystitis, pancreatitis, gastritis, gastroesophageal reflux, anxiety, chest wall pain. At this time, labs and exam are not suggestive of a dangerous cause for chest pain. Review that at this time I cannot tell her exactly what the cause is. I would recommend given her risk factor profile that she have a stress test done as an outpatient. She sees Dr. Lea and can follow-up with her for results of the stress test. If at any time she has acute worsening, return to the ER. She takes Buspar, recommend that she take that as prescribed. If anxiety seems to be poorly controlled this can be discussed with Dr. Lea. We did talk about her current situation at home with her boyfriend and stressors. She feels it might be helpful to talk to a counselor, did not feel the need talk with [facility]. Resources provided. Vital Signs Vital signs: Initial Vital Signs Temperature Source Temporal Artery Scan 03/14/24 11:48 Pulse Rate 03/14/24 11:48 Respiratory Rate 03/14/24 11:48 Blood Pressure 135/95 H 03/14/24 11:48 Blood Pressure Mean 108 H 03/14/24 11:48 Blood Pressure Position Sitting 03/14/24 11:48 Pulse Oximetry 03/14/24 11:48 Oxygen Delivery Method Room Air 03/14/24 11:48 Vital Signs Pulse Rate 03/14/24 11:48 Respiratory Rate 16 03/14/24 11:48 Blood Pressure 135/95 H 03/14/24 11:48 Pulse Oximetry 03/14/24 11:48 Oxygen Delivery Method Room Air 03/14/24 11:48 Pulse Rate 03/14/24 11:48 Respiratory Rate 03/14/24 11:48 Blood Pressure 135/95 H 03/14/24 11:48 Pulse Oximetry 99 03/14/24 11:50 Oxygen Delivery Method Room Air 03/14/24 11:48 Medications Administered Medications: Discontinued Medications Generic Name Dose Route Start Last Admin Trade Name Diana PRN Reason Stop Dose Admin Aspirin 324 mg 03/14/24 12:13 03/14/24 12:41 Aspirin 81 Mg Tab.Chew PO 03/14/24 12:14 324 mg ONCE ONE Administration Lorazepam 1 mg 03/14/24 12:13 03/14/24 12:41 Lorazepam 1 Mg Tablet PO 03/14/24 12:14 1 mg ONCE ONE Administration Medical Decision Making Lab Data Labs: Lab Results 03/14/24 03/14/24 Range/Units 12:14 12:34 WBC 12.75 H (4.50-11.00) K/uL RBC 4.66 (4.00-5.20) m/uL Hgb 15.3 (12.0-16.0) gm/dL Hct 44.3 (33.0-51.0) % MCV 95 (80-100) fL MCH 33 (26-34) pg MCHC 35 (32-36) gm/dL RDW Coeff of Sloan 12.7 (11.5-15.5) % Plt Count 324 (140-440) K/uL Neut % (Auto) 75.6 H (42.0-72.0) % Lymph % (Auto) 18.9 L (20-44) % [place] % (Auto) 3.8 (0.0-11.0) % Eos % (Auto) 1.3 (0.0-7.0) % Baso % (Auto) 0.2 (0.0-3.0) % Neut # (Auto) 9.60 H (1.7-7.0) K/uL Lymph # (Auto) 2.40 (0.90-2.90) K/uL [place] # (Auto) 0.50 (0.00-0.90) K/UL Eos # (Auto) 0.20 (0.00-0.50) K/uL Baso # (Auto) 0.00 (0.00-0.30) K/uL Abs Immat Gran (auto) 0.00 (0.00-0.30) K/uL Imm/Tot Granulo (auto) 0.2 % D-Dimer Quant (PE/DVT) 0.25 (0.00-0.50) ug/ml Sodium 138 (135-149) mmol/L Potassium 3.7 (3.6-5.1) mmol/L Chloride 104 (96-114) mmol/L Carbon Dioxide 29 (20-32) mmol/L Anion Gap 5 L (7-15) mEq/L BUN 7 (7-30) mg/dL Creatinine 0.6 (0.5-1.5) mg/dL Estimated Creat Clear 97.57 Estimated GFR 107 ml/min Glucose 115 (60-115) mg/dL Calcium 9.2 (8.4-10.6) mg/dL Total Bilirubin 0.7 (0.1-1.5) mg/dL Direct Bilirubin 0.5 (0.0-0.5) mg/dL AST 19 (12-35) U/L ALT 15 (4-35) U/L Alkaline Phosphatase 73 (40-150) U/L C-Reactive Protein < 0.5 L (0.5-1.0) mg/dL Total Protein 7.5 (6.0-8.3) g/dL Albumin 4.8 (3.3-5.0) g/dL Lipase 85 (23-300) U/L POC Troponin I 0.00 L (0.01-0.04) ng/ml Discharge Plan Discharge Clinical Impression: Chest pain, Anxiety Patient Disposition: Home, Self-Care Condition: Improved Instructions: Chest Pain (ED), Anxiety (ED) Additional Instructions: Follow-up for stress test as an outpatient as discussed. You will need to follow up with Dr. Lea following your stress test to go over results. Return to the ER at any time for acute worsening, severe uncontrolled pain, shortness of breath,, fever etcetera. Make sure to take your Buspar as prescribed. Follow up with a counselor or therapist may be beneficial, resources provided. Return to the ER at any time if you feel unsafe. Prescriptions: No Action levothyroxine 100 mcg tablet propranolol 10 mg tablet duloxetine 60 mg capsule,delayed release(DR/EC) PO pregabalin 75 mg capsule pregabalin 150 mg capsule ketorolac 10 mg tablet 10 mg PO TID PRN (Reason: pain) 3 Days Qty: 10 0RF tramadol 50 mg tablet 50 mg PO Q8H PRN (Reason: pain) Qty: 14 0RF prednisone 20 mg tablet 20 mg PO BID Qty: 10 0RF Follow Up/Referrals: Anamaria Lea DO [Primary Care Provider] - Stand Alone Forms: [facility] Info Instructions
--- OUTSIDE RECORDS SUMMARY | 2024-03-14 12:23 | XMS_ITS | Clinical Summary ---
Author Organization [facility] Address [address], [place] [address] Care Team Providers Care Hydrology Technician Name Role Phone Anamaria Lea DO Primary Care Provider [phone] Allergies Active Allergy Reactions Criticality Noted Date Comments Adhesive Rash 10/14/2015 Tramadol Itching 05/13/2019 Unlisted Allergen (Include Detail In Comments) Runny Nose,Itching 02/18/2010 Seasonal allergies Medications Medication Sig Dispensed Refills Start Date End Date Status MULTIVITAMIN TAB take 1 tablet by oral route once daily with food 0 7 Active meclizine (ANTIVERT) 25 mg tabletIndications:D izziness Take 1 tablet by mouth 3 times daily if needed. 45 tablet 0 6 Active cholecalciferol (VITAMIN D) 1,000 unit capsule Take 1 capsule by mouth once daily. 0 8 Active Magnesium 200 mg tab Take 1 tablet by mouth once daily. 0 8 Active vitamin B complex (B COMPLEX 1) tablet Take 1 tablet by mouth once daily. 0 8 Active nicotine (COMMIT) 2 mg lozengeIndications: Tobacco use Place 1 Lozenge in mouth, between cheek & gum every hour while awake as needed for Nicotine Craving. 108 Lozenge 2 9 Active omeprazole (PRILOSEC) 20 mg Delayed-Release capsuleIndications: Abdominal pain, epigastric TAKE 1 CAPSULE BY MOUTH EVERY DAY BEFORE A MEAL 90 capsule 9 Active Echinacea 500 mg cap Take by mouth. 0 0 Active calcium carbonate (CALCIUM 600) 600 mg calcium (1,500 mg) tablet Take 1 tablet by mouth once daily. 0 0 Active diclofenac topical (VOLTAREN) 1 % gelIndications:Left knee pain, unspecified chronicity APPLY 2 G TOPICALLY TO AFFECTED AREA(S) 4 TIMES DAILY 1 Tube 2 1 Active Ferrous Gluconate 324 mg (38 mg iron) tablet Take 1 Tablet (324 mg) by mouth once daily with a meal. 0 1 Active ascorbic acid, vitamin C, (Vitamin C) 500 mg tablet Take 1 Tablet (500 mg) by mouth once daily. 0 1 Active Bacillus coagulans (Digestive Advantage Probio-Pre) 400 million cell chew Chew by mouth. 0 1 Active cetirizine (ZYRTEC) 10 mg tabletIndications:S easonal allergic rhinitis due to pollen TAKE 1 TABLET BY MOUTH ONCE DAILY 90 Tablet 1 Active ipratropium (ATROVENT NASAL) 42 mcg (0.06 %) nasal sprayIndications:Ch ronic rhinitis INSTILL 2 SPRAYS IN EACH NOSTRIL THREE TIMES A DAY NEEDED Strength: 42 mcg (0.06 %) 90 mL 2 3 Active SUMAtriptan (IMITREX) 100 mg tabletIndications:H istory of migraine TAKE 1/2 TABLET BY MOUTH EVERY 2 HOURS NEEDED FOR MIGRAINE *MAX DAILY DOSE: 200MG* 9 Tablet 5 3 Active levothyroxine (SYNTHROID) 125 mcg tabletIndications:S ubclinical hypothyroidism Take 1 Tablet (125 mcg) by mouth before breakfast. 90 Tablet 3 3 Active busPIRone (BUSPAR) 15 mg tabletIndications:G AD (generalized anxiety disorder) Take 1 Tablet (15 mg) by mouth two times daily. 180 Tablet 3 4 Active celecoxib (CELEBREX) 200 mg capsuleIndications: Lumbar facet arthropathy Take 1 Capsule (200 mg) by mouth two times daily with meals. 60 Capsule 2 4 Active gabapentin (NEURONTIN) 300 mg capsuleIndications: Lumbar radiculopathy Take 1 Capsule (300 mg) by mouth at bedtime. 30 Capsule 3 4 Active DULoxetine (CYMBALTA) 60 mg Delayed-release capsuleIndications: Fibromyalgia TAKE 1 CAPSULE(60 MG) BY MOUTH EVERY DAY 90 Capsule 3 4 Active propranolol ER (INDERAL LA) 60 mg Cs24 Sustained-Release capsuleIndications: HTN (hypertension),Othe r migraine without status migrainosus, not intractable TAKE 1 CAPSULE(60 MG) BY MOUTH EVERY DAY 90 Capsule 2 4 Active propranolol ER (INDERAL LA) 60 mg Cs24 Sustained-Release capsuleIndications: HTN (hypertension),Othe r migraine without status migrainosus, not intractable Take 1 Capsule (60 mg) by mouth once daily. 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 Fibromyalgia 05/19/2014 Migraine 08/01/2013 Major depressive disorder, recurrent episode, un specified 04/25/2007 Anxiety state, unspecified 04/25/2007 Allergic rhinitis, cause unspecified 11/04/2006 Resolved Problems Problem Noted Date Diagnosed Date Resolved Date Pericarditis 03/01/2022 03/01/2022 Subclinical hypothyroidism 10/07/2014 0 12/21/2020 Encounters Date Type Department Care Team Description 02/19/2024 Telephone [facility] [address] [place] [address] Pavel Morgan MD Form 02/14/2024 Refill [facility] [address] [place] [address] Anamaria Lea DO Refill Request (Propranolol Er) 02/07/2024 9:00 AM CDT - 02/07/2024 11:59 PM CDT Hospital Encounter [facility] ? [facility] [address] [place] [address] Pita Wyman MD Simmons, Brandon F, OT 02/07/2024 Travel 01/19/2024 Telephone [facility] [address] [place] [address] Pita Wyman MD Form 01/18/2024 Telephone [facility] [address] [place] [address] Pavel Morgan MD Form ([facility] for [facility]) 01/16/2024 10:15 AM CDT Office Visit [facility] [address] [place] [address] Pita Wyman MD Physical (53 year old female); Form (Disability for back) 01/16/2024 Travel 12/25/2023 Refill [facility] [address] [place] [address] Anamaria Lea DO Refill Request (Levothyroxine) 12/22/2023 Telephone [facility] [address] [place] [address] Pavel Morgan MD Results (MRI) 12/19/2023 11:40 AM CDT Office Visit [facility] [address] [place] [address] Anamaria Lea DO Medication Management (Buspar and propranolol) 12/19/2023 Travel from Last 3 Months Immunizations Name Administration Dates Next Due AMB Influenza, IIV3 (Age >=3 years)(Flu Clinic Only) 07/10/2013 COVID-19 vaccine (Moderna 50mcg/0.5mL) 12YO+ BIVALENT PF, MDV 08/30/2022 COVID-19 vaccine (Pfizer-Bio NTech 30mcg/0.3mL) PF, MDOk 12/01/2020,11/10/2020 Hepatitis B (Adult) 02/18/2010,09/09/1994,1993 Influenza, IIV3 (Age >=3 years) 07/10/2013,07/15,08/30/2003 Influenza, IIV4 07/07/2023,,08/27/2021, 020,06/09/2019,06/08/2018,07/20/2017,,08/03/2015,07/03/2014 Td (Age >=7 Years) 05/13/2019,01/02/2003 Tdap 12/28/2010 Zoster (Shingrix-RZV, recombinant) 11/30/2022, Family History Medical History Relation Name Comments Depression Brother 1 Hypertension Brother 1 possibly high c holesterol as well as depression Depression Brother 2 Seizures Brother 2 COPD Father Cancer-prostate Father Cancer Maternal Aunt 1 Thyroid Disease Maternal Aunt 1 Thyroid Disease Maternal Aunt 2 Asthma Maternal Grandmother Stroke Maternal Grandmother Diabetes Maternal Uncle type II Cancer Mother nasopharyngeal Hypothyroidism Mother Other cancer Mother nasal pharnyx c ancer Diabetes Paternal Aunt type II Alcoholism Paternal Grandfather Dementia Paternal Grandmother Depression Sister Seizures Son 1 epileptic No Known Problems Son 2 Cancer-breast No Family History Cancer-ovarian No Family History Relation Name Status Comments Brother 1 Alive Brother 2 Alive Father Alive Maternal Aunt 1 Maternal Aunt 2 Maternal Grandfather Maternal Grandmother Alive Maternal Uncle Mother Paternal Aunt Paternal Grandfather Paternal Grandmother Sister Alive Son 1 Alive Son 2 Alive Social History Tobacco Use Types Packs/Day Years Used Date Smoking Tobacco: Every Day Cigarettes 0.3 20 Smokeless Tobacco: Never Tobacco Cessation:Ready to Q uit: Yes; Counseling Given: Yes Comments:trying to quit 05/15/20 off and on since 20s Alcohol Use Standard Drinks/Week Comments Yes 0 (1 standard drink = 0.6 oz pur e alcohol) rarely PHQ-2 Answer Date Recorded PHQ-2 TOTAL SCORE 1 01/16/2024 Social Connections Answer Date Recorded Frequency of Communication with Friends and Fami ly 0 11/21/2023 Alcohol Use Answer Date Recorded How often do you have a drink containing alcohol ? 2 12/19/2023 How many drinks containing a lcohol do you have on a typical day when you are drinking? 0 12/19/2023 How often do you have five or more drinks on one occasion? 0 12/19/2023 Financial Resource Strain Answer Date R ecorded Difficulty of Paying Living Expenses 1 11/21/2023 Difficulty of Paying Living Expenses 2 11/21/2023 Food Insecurity Answer Date Recorded Worried About Running Out of Food in the Last Ye ar 1 11/21/2023 Transportation Needs Answer Date Record ed Lack of Transportation (Medical) 1 11/21/2023 Housing Stability Answer Date Recorded Unable to Pay for Housing in the Last Year 1 11/21/2023 Sex and Gender Information Value Date Recorded Sex Assigned at Not on file Gender Identity Not on file Sexual Orientation Not on file Obstetrics History Para Term AB IAB SAB Ectopic Multiple Livin g Live Births 4 2 2 0 2 1 1 0 0 2 2 Date Outcome GA Total Labor Labor/2nd/3rd Weight Sex Delivery Anes PTL Yumiko A1 A5 Name Cl in IAB SAB 1991 Term 4.08 kg (9 lb) Vag Cyndie ng Comments:episiotomy 1994 Term 3.18 kg (7 lb) Vag Cyndie ng Last Filed Vital Signs Vital Sign Reading Time Taken Comments Blood Pressure 120/79 01/16/2024 10:22 AM CDT Pulse 71 01/16/2024 10:22 AM CDT Temperature 36.5 ??C (97.7 ??F) 01/16/2024 10:22 AM C DT Respiratory Rate 16 11/09/2023 8:44 PM [facility] Oxygen Saturation 100% 01/16/2024 10:22 AM CDT Inhaled Oxygen Concentration - - Weight 63.8 kg (140 lb 9.6 oz) 01/16/2024 10:22 AM CDT Height 164.6 cm (5' 4.8) 01/16/2024 10:22 AM CD T Body Mass Index 23.54 01/16/2024 10:22 AM CDT Plan of Treatment Health Maintenance Due Date Last Done Comments Pneumococcal series for age 6-64 (1 of 2 - PCV) 1976 COVID-19 vaccine series (2022-24 season) 2023 08/30/2022, 09/23/2021, 12/01/2020, Additional history exists Mammogram for age 45-75 09/15/2023 09/15/20, 08/27/2021, 07/31/2020, Additional history exists Pap test for age 21-65 05/30/2024 9, 05/30/2019, 10/21/2015, Additional history exists Influenza for age 50-64 06/09/2024 07/07/20 23, 08/30/2022, 08/27/2021, Additional history exists BMI (ht and wt on same day) for age 18+ 01/15/2025 01/16/2024, 11/27/2023, 11/30/2022, Additional history exists Depression screening for age 12+ 01/18/2025 01/19/2024, 01/18/2024, 01/16/2024, Additional history exists Colonoscopy through age 75 04/14/202704/14, 04/14/2017, 04/14/2017 Lipids for age 45-75 01/15/2029 01/16/2024, 11/10/2016, 11/22/2012 Tetanus booster 05/13/2029 05/13/2019, 12/08, 01/02/2003 HIV for age 15-65 Completed 02/18/2010 Tdap Completed 12/28/2010 Hepatitis C screening for ag e 18-79 Completed 11/30/2022 Zoster (shingles) series for age 50+ Completed 11/30/2022, 08/27/2021 Procedures Procedure Name Priority Date/Time Associated Diagnosis Comments CBC WITH AUTO DIFFERENTIAL Routine 01/16/2024 11:01 AM CDT Leukocytosis, unspecified type RETICULOCYTES Routine 01/16/2024 11:01 AM CDT Leukocytosis, unspecified type CBC WITH AUTO DIFFERENTIAL Routine 01/16/2024 11:01 AM CDT Leukocytosis, unspecified type HEMOGLOBIN A1C SCREENING Routine 01/16/2024 11:01 AM CDT Screening for diabetes mellitus TSH Routine 01/16/2024 11:01 AM CDT 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 LIPID PANEL W REFLEX MEASURED LDL Routine 01/16/2024 11:01 AM CDT Screening cholesterol level LC HCV ANTIBODY RFX TO QUANT PCR Routine 11/30/2022 12:12 PM [facility] Need for hepatitis C screening test XR MAMMO MEGHNA BILAT SCREEN Routine 09/15/2022 4:21 PM [facility] Visit for screening mammogram PARTY DIRECTOR THIN PREP PAP SCREEN IMAGED Routine 05/30/2019 3:46 PM CDT Pap smear for cervical cancer screening SCAN-COLONOSCOPY 04/14/2017 12:0 0 AM CDT ANTI HIV 1/2 Routine 02/18/2010 9:41 AM CDT Screening for STDs (sexually transmitted diseases) from Last 3 Months or Most Recently Relevant to Health Maintenance Results * (ABNORMAL) CBC WITH AUTO DIFFERENTIAL (01/16/2024 11:01 AM CDT) WHITE BLOOD COUNT 13.4(H) 4.5 - 11.0 thou/cu mm 01/16/2024 11:07 AM CDT [facility] RED BLOOD COUNT 4.87 4.00 - 5.20 mil/cu mm 01/16/2024 11:07 AM CDT [facility] HEMOGLOBIN 16.0 12.0 - 16.0 g/dL 01/16/2024 11:07 AM CDT [facility] HEMATOCRIT 45.1 33.0 - 51.0 % 01/16/2024 11:07 AM CDT [facility] MCV 93 80 - 100 fL 01/16/2024 11:07 AM CDT [facility] MCH 32.9 26.0 - 34.0 pg 01/16/2024 11:07 AM CDT [facility] MCHC 35.5 32.0 - 36.0 g/dL 01/16/2024 11:07 AM CDT [facility] RDW 12.9 11.5 - 15.5 % 01/16/2024 11:07 AM CDT [facility] PLATELET COUNT 305 140 - 440 thou/cu mm 01/16/2024 11:07 AM CDT [facility] MPV 9.5 6.5 - 11.0 fL 01/16/2024 11:07 AM CDT [facility] % NEUT 78.9 % 01/16/2024 11:07 AM CDT [facility] % LYMPH 13.8 % 01/16/2024 11:07 AM CDT [facility] % MONO 5.5 % 01/16/2024 11:07 AM CDT [facility] % EOS 1.6 % 01/16/2024 11:07 AM CDT [facility] % BASO 0.2 % 01/16/2024 11:07 AM CDT [facility] ABSOLUTE NEUTROPHILS 10.6(H) 1.7 - 7.0 thou/cu mm 01/16/2024 11:07 AM CDT [facility] ABSOLUTE LYMPHOCYTES 1.8 0.9 - 2.9 thou/cu mm 01/16/2024 11:07 AM CDT [facility] ABSOLUTE MONOCYTES 0.7 <0.9 thou/cu mm 01/16/2024 11:07 AM CDT [facility] ABSOLUTE EOSINOPHILS 0.2 <0.5 thou/cu mm 01/16/2024 11:07 AM CDT [facility] ABSOLUTE BASOPHILS 0.0 <0.3 thou/cu mm 01/16/2024 11:07 AM CDT [facility] Blood BLOOD SPECIMEN / Unknown Venipuncture / Unknown 01/16/2024 11:01 AM CDT 01/16/2024 11:03 AM CDT Pita Wyman MD HEMATOLOGY [facility] [address] [place] [address], * HEMOGLOBIN A1C SCREENING (01/16/2024 11:01 AM CDT) Pathologist [facility] HEMOGLOBIN A1C SCREENING 5.9 <=6.4 % 01/18/2024 1:56 PM CDT [facility] Blood BLOOD SPECIMEN / Unknown Venipuncture / Unknown 01/16/2024 11:01 AM CDT 01/16/2024 11:03 AM CDT Narrative [facility] - 01/18/2024 1:56 PM CDT ? (<5.7%) ?Normal ? (5.7% to 6.4%) ? Indicates prediabetes ? (>=6.5%) ? Confirms diabetes Falsely low levels may be seen with: Recent Transfusion, Recent Significant Blood Loss, Hemolytic Diseases, or Falsely elevated levels may be seen with: Untreated Anemias, Splenectomy Pita Wyman MD CHEMISTRY [facility] [address] [place] [address], * (ABNORMAL) LIPID PANEL W REFLEX MEASURED LDL (01/16/2024 11:01 AM CDT) [facility] CHOLESTEROL,TOTAL 217(H) 100 - 199 mg/dL 01/16/2024 5:10 PM CDT [facility] Comment: Cholesterol, Total Reference Ranges Desirable <200 mg/dL Borderline 200-239 mg/dL High >=240 mg/dL TRIGLYCERIDES 215(H) <150 mg/dL 01/16/2024 5:10 PM CDT [facility] HDL CHOLESTEROL 40(L) >40 mg/dL 5:10 PM CDT [facility] NON-HDL CHOLESTEROL 177(H) <145 mg/dl 01/16/2024 5:10 PM CDT [facility] CHOL/HDL RATIO 5.43(H) <4.50 01/16/2024 5:10 PM CDT [facility] LDL CHOLESTEROL 134(H) <=130 mg/dL 01/16/2024 5:10 PM CDT [facility] VLDL CHOLESTEROL 43(H) <=30 mg/dL 01/16/2024 5:10 PM CDT [facility] PROVIDER ORDERED STATUS RANDOM 01/16/2024 5:10 PM CDT [facility] Blood BLOOD SPECIMEN / Unknown Venipuncture / Unknown 01/16/2024 11:01 AM CDT 01/16/2024 11:03 AM CDT Pita Wyman MD CHEMISTRY Performing Organization Address [facility] Co de Phone Number [facility] [address] [place] [address], [place] * TSH (01/16/2024 11:01 AM CDT) TSH 0.91 0.27 - 4.20 uIU/mL 01/16/2024 5:10 PM CDT [facility] Blood BLOOD SPECIMEN / Unknown Venipuncture / Unknown 01/16/2024 11:01 AM CDT 01/16/2024 11:03 AM CDT Narrative [facility] - 01/16/2024 5:10 PM CDT In Adults, TSH values between 5.00 and 10.00 uIU/ml do not necessarily indicate the presence of Hypothyroidism. Correlation with clinical findings such as presence of goiter and/or Thyroperoxidase (TPO) Antibody may be helpful. For more information please refer to GERALDINE 2004; 291: 228-238. Pita Wyman MD CHEMISTRY Performing Organization Address [facility] Co de Phone Number [facility] [address] [place] [address], * (ABNORMAL) RETICULOCYTES (01/16/2024 11:01 AM CDT) RETIC% 1.7(H) 0.5 - 1.5 % 01/16/2024 4:04 PM CDT [facility] RETIC (ABSOLUTE) 0.09(H) 0.03 - 0.08 mil/cu mm 01/16/2024 4:04 PM CDT [facility] Blood BLOOD SPECIMEN / Unknown Venipuncture / Unknown 01/16/2024 11:01 AM CDT 01/16/2024 11:03 AM CDT Pita Wyman MD HEMATOLOGY [facility] [address] [place] [address], [place] * LC HCV ANTIBODY RFX TO QUANT PCR (11/30/2022 12:12 PM [facility]) Pathologist [facility] HCV Ab Non Reactive Non Reactive 12/02/2022 11:09 AM [facility] Blood BLOOD SPECIMEN / Unknown Venipuncture / Unknown 11/30/2022 12:12 PM [facility] 11/30/2022 12:13 PM [facility] [place] Narrative [facility] ([facility]) - 12/02/2022 11:09 AM [facility] Performed at: ??[address] ??[id number] Office Engineer: Shiv Molina MD, Phone: ??[phone] Anamaria Lea DO LABORATORY Performing Organization Address City/[facility]/ZIP Co de Phone Number [facility] ([facility]) [address] [place] [id number], [place] * XR MAMMO MEGHNA BILAT SCREEN (09/15/2022 4:21 PM [facility] [place]) Anatomical Region Laterality Modality BREASTS, Breast Left, Breast Right Bilateral Mammography Impressions 09/16/2022 4:08 PM [facility] ??There is no radiographic evidence for malignancy. ??Recommend annual mammograms. MAMMOGRAM ASSESSMENT: ??ACR 1 Negative PATIENTS: You will also receive a letter with your examination results in an easy to read format. ??If you have questions about your results, please contact your referring provider. Narrative 09/16/2022 4:08 PM [facility] [place] For Patients: As a result of the 21st Century Cures Act, medical imaging exams and procedure reports are released immediately into your electronic medical record. You may view this report before your referring provider. If you have questions, please contact your health care provider. XR MAMMO MEGHNA BILAT SCREEN [[id number]] CLINICAL HISTORY: ??This is an asymptomatic 51 y.o. patient. INDICATION FOR EXAM: Mammogram Screening. TECHNIQUE: CC & MLO views were obtained. ??This study was evaluated with the assistance of Computer-Aided Detection. Breast Tomosynthesis was used in interpretation. COMPARISON FILM: Yes 08/27/21 [employer] 07/16/20 [employer] FINDINGS: ??The breasts are heterogeneously dense, which may obscure small masses. There are no dominant masses, suspicious micro calcifications or areas of architectural distortion. Anamaria Lea DO MAMMO * PARTY DIRECTOR THIN PREP PAP SCREEN IMAGED (05/30/2019 3:46 PM CDT) Case Report Gynecologic Cytology Report ? Case: [id number] ? Authorizing Provider: ??Reina Mathews, ??Collected: ? 05/30/2019 1546 ? PA ? Ordering Location: ? [facility] ?? Received: ?05/30/2019 1609 ? Clinic ? First Screen: ?Davidson Thao ? Specimen: ?PARTY DIRECTOR ThinPrep Vial Screening, Cervical ? 06/11/2019 2:44 PM CDT [facility] [employer] [facility] INTERPRETATION/ RESULT NEGATIVE FOR INTRAEPITHELIAL LESION OR MALIGNANCY (NIL) (none) 06/11/2019 2:44 PM CDT [facility] NISM(S) Shift in harrison suggestive of bacterial vaginosis 06/11/2019 2:44 PM CDT [facility] SPECIMEN ADEQUACY Satisfactory for evaluation No endocervical component seen 06/11/2019 2:44 PM CDT [facility] HPV REQUEST HPV and PAP 06/11/2019 2:44 PM CDT [facility] Date of LMP ablation 06/11/2019 2:44 PM CDT [facility] Last Pap Date 10/21/15 06/11/2019 2:44 PM CDT [facility] Last Pap Result NIL 2:44 PM CDT [facility] Abnormal Pap or [place] Bx in last 5 years No 06/11/2019 2:44 PM CDT [facility] Menstrual Status Ablation 06/11/2019 2:44 PM CDT [facility] [place] Bx Done Today No 06/11/2019 2:44 PM CDT [facility] Additional Information None given 06/11/2019 2:44 PM CDT [facility] Automated Review Successful 06/11/2019 2:44 PM CDT [facility] Comment:Specimen processed s uccessfully by automated handcrew foreman device, ThinPrep Imaging System, [employer] ANCILLARY TESTING PARTY DIRECTOR HPV Ordered, Please see separate report 06/11/2019 2:44 PM CDT [facility] Note The pap test is a screening technique, not a diagnostic procedure. ??It is used primarily to screen for squamous cancers and precursor lesions. ??Published studies have shown that it is subject to both false negative and false positive results. ??The pap test should not be used as the sole means to diagnose or exclude pre-malignant and malignant lesions. Cytology is screened and interpreted at [facility] - [address], [place] [address] and [facility] - [address]; [place] [address] and [employer] - [address]; [place] [address] and [facility] [address]; [place] [address] 06/11/2019 2:44 PM CDT [facility] Other (Cervical) Non-Blood / Unknown 05/30/2019 3:46 PM CDT 05/30/2019 4:09 PM CDT Reina ROYAL PATHOLOGY/CYT OLOGY [facility] [address] [place] [address], [place] * SCAN-COLONOSCOPY (04/14/2017 12:00 AM CDT) Scanner OTHER * HIV (02/18/2010 9:41 AM CDT) ANTI HIV 1/2 Non-reacti ve [facility] Blood specimen (specimen) BLOOD SPECIMEN / Unknown 02/18/2010 9:41 AM CDT 02/18/2010 9:35 AM CDT Jovan Smalls MD SEND OUTS [facility] INTERNAL ZIP [address] [place] [id number] from Last 3 Months or Most Recently Relevant to Health Maintenance Care Teams Hydrology Technician Relationship Specialty Start Date End Date Anamaria Lea DO [address] PCP - General Family Practice 10/25/19
[2024-03-14] MEDS: ASPIRIN 81 MG TAB.CHEW 324 MG PO (12:41)
[2024-03-14] MEDS: LORazepam 1 MG TABLET PO (12:41)
[2024-03-14 12:44] LABS: Basophils Percent Auto 0.2 % (0.0-3.0); Eosinophils Percent Auto 1.3 % (0.0-7.0); Hematocrit 44.3 % (33.0-51.0); Hemoglobin* 15.3 gm/dL (12.0-16.0); Immature Granulocytes Pct Auto 0.2 %; Lymphocytes Percent Auto 18.9 % (20-44); Mean Corpuscular HGB Conc 35 gm/dL (32-36); Mean Corpuscular Hemoglobin 33 pg (26-34); Mean Corpuscular Volume 95 fL (80-100); Monocytes Percent Auto 3.8 % (0.0-11.0); Neutrophils Percent Auto 75.6 % (42.0-72.0); Platelet Count* 324 K/uL (140-440); RDW Coefficient of Variation % 12.7 % (11.5-15.5); Red Blood Count 4.66 m/uL (4.00-5.20); White Blood Count* 12.75 K/uL (4.50-11.00)
[2024-03-14 12:48] LABS: Slide Review Reflex No
[2024-03-14 12:59] LABS: Albumin* 4.8 g/dL (3.3-5.0); Chloride* 104 mmol/L (96-114)
[2024-03-14 13:00] LABS: Potassium* 3.7 mmol/L (3.6-5.1); Sodium* 138 mmol/L (135-149)
[2024-03-14 13:02] LABS: Creatinine* 0.6 mg/dL (0.5-1.5); Est. Creatinine Clearance* 97.57; Estimated Glomerular Filt Rate 107 ml/min
[2024-03-14 13:03] LABS: Alanine Aminotransferase* 15 U/L (4-35); Alkaline Phosphatase* 73 U/L (40-150); Anion Gap 5 mEq/L (7-15); Aspartate Amino Transferase* 19 U/L (12-35); Bilirubin Direct* 0.5 mg/dL (0.0-0.5); Bilirubin Total* 0.7 mg/dL (0.1-1.5); Blood Urea Nitrogen* 7 mg/dL (7-30); Calcium* 9.2 mg/dL (8.4-10.6); Carbon Dioxide* 29 mmol/L (20-32); Glucose* 115 mg/dL (60-115); Lipase* 85 U/L (23-300); Total Protein* 7.5 g/dL (6.0-8.3)
[2024-03-14 13:09] LABS: C Reactive Protein* < 0.5 mg/dL (0.5-1.0)
[2024-03-14 13:11] LABS: D Dimer Quantitative* 0.25 ug/ml (0.00-0.50)
== END 2024-03-14 13:45 | disposition home or self-care (01) ==
PROVIDERS: Emergency Provider Emergency Medicine; PCP Family Medicine
DX: R07.9 Chest pain, unspecified (principal); F41.9 Anxiety disorder, unspecified
CPT/HCPCS: 36415; 71045; 80048; 80076; 83690; 84484; 85025; 85379; 86140; 93005; 94761; 99284; 99285; A9270

== ENCOUNTER 2024-05-04 14:01 | Emergency (ER) | payer OTHER, SELFPAY ==
[2024-05-04 14:09] VITALS: BP 151/101; PULSE 83; RESP 18; TEMP 36.8; O2SAT 98; BMI 24.1
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
--- OUTSIDE RECORDS SUMMARY | 2024-05-04 14:51 | XMS_ITS | Clinical Summary ---
Author Organization [facility] Address [place], [place] [address] Care Team Providers Care Solar Electric Practitioner Name Role Phone Anamaria Lea DO Primary Care Provider [phone] Allergies Active Allergy Reactions Criticality Noted Date Comments Adhesive Rash 10/14/2015 Tramadol Itching 05/13/2019 Unlisted Allergen (Include Detail In Comments) Runny Nose,Itching 02/18/2010 Seasonal allergies Medications Medication Sig Dispensed Refills Start Date End Date Status MULTIVITAMIN TAB take 1 tablet by oral route once daily with food 0 07/18/2007 Active meclizine (ANTIVERT) 25 mg tabletIndications:Diz ziness Take 1 tablet by mouth 3 times daily if needed. 45 tablet 0 06/07/2016 Active cholecalciferol (VITAMIN D) 1,000 unit capsule Take 1 capsule by mouth once daily. 0 10/23/2017 Active Magnesium 200 mg tab Take 1 tablet by mouth once daily. 0 04/19/2018 Active vitamin B complex (B COMPLEX 1) tablet Take 1 tablet by mouth once daily. 0 09/19/2018 Active nicotine (COMMIT) 2 mg lozengeIndications:To bacco use Place 1 Lozenge in mouth, between cheek & gum every hour while awake as needed for Nicotine Craving. 108 Lozenge 2 05/30/2019 Active omeprazole (PRILOSEC) 20 mg Delayed-Release capsuleIndications:Ab dominal pain, epigastric TAKE 1 CAPSULE BY MOUTH EVERY DAY BEFORE A MEAL 90 capsule 06/24/2019 Active Echinacea 500 mg cap Take by mouth. 0 12/19/2019 Active calcium carbonate (CALCIUM 600) 600 mg calcium (1,500 mg) tablet Take 1 tablet by mouth once daily. 0 05/22/2020 Active diclofenac topical (VOLTAREN) 1 % gelIndications:Left knee pain, unspecified chronicity APPLY 2 G TOPICALLY TO AFFECTED AREA(S) 4 TIMES DAILY 1 Tube 2 12/17/2020 Active Ferrous Gluconate 324 mg (38 mg iron) tablet Take 1 Tablet (324 mg) by mouth once daily with a meal. 0 04/26/2021 Active ascorbic acid, vitamin C, (Vitamin C) 500 mg tablet Take 1 Tablet (500 mg) by mouth once daily. 0 04/26/2021 Active Bacillus coagulans (Digestive Advantage Probio-Pre) 400 million cell chew Chew by mouth. 0 04/26/2021 Act sergey cetirizine (ZYRTEC) 10 mg tabletIndications:Sea rand allergic rhinitis due to pollen TAKE 1 TABLET BY MOUTH ONCE DAILY 90 Tablet 08/12/2021 Active ipratropium (ATROVENT NASAL) 42 mcg (0.06 %) nasal sprayIndications:Data Typist cathleen rhinitis INSTILL 2 SPRAYS IN EACH NOSTRIL THREE TIMES A DAY NEEDED Strength: 42 mcg (0.06 %) 90 mL 2 11/30/2022 Active SUMAtriptan (IMITREX) 100 mg tabletIndications:His tory of migraine TAKE 1/2 TABLET BY MOUTH EVERY 2 HOURS NEEDED FOR MIGRAINE *MAX DAILY DOSE: 200MG* 9 Tablet 5 11/30/2022 Active busPIRone (BUSPAR) 15 mg tabletIndications:MELECIO (generalized anxiety disorder) Take 1 Tablet (15 mg) by mouth two times daily. 180 Tablet 3 11/21/2023 Active celecoxib (CELEBREX) 200 mg capsuleIndications:Urmila mbar facet arthropathy Take 1 Capsule (200 mg) by mouth two times daily with meals. 60 Capsule 2 11/27/2023 Active gabapentin (NEURONTIN) 300 mg capsuleIndications:Urmila mbar radiculopathy Take 1 Capsule (300 mg) by mouth at bedtime. 30 Capsule 3 11/27/2023 Active DULoxetine (CYMBALTA) 60 mg Delayed-release capsuleIndications:Fi bromyalgia TAKE 1 CAPSULE(60 MG) BY MOUTH EVERY DAY 90 Capsule 3 12/04/2023 Active propranolol ER (INDERAL LA) 60 mg Cs24 Sustained-Release capsuleIndications:HT N (hypertension),Other migraine without status migrainosus, not intractable TAKE 1 CAPSULE(60 MG) BY MOUTH EVERY DAY 90 Capsule 2 02/15/2024 Active levothyroxine (SYNTHROID) 125 mcg tabletIndications:Sub clinical hypothyroidism TAKE 1 TABLET(125 MCG) BY MOUTH BEFORE BREAKFAST 90 Tablet 2 03/21/2024 Active Active Problems Problem Noted Date Diagnosed Date [...] Encounters Date Type Department Care Team Description 03/20/2024 Refill [facility] [address] [place] [address] Anamaria Lea DO Refill Request (Levothyroxine) 03/14/2024 Orders Only [facility] Scanner 1 scan: (1-Ord) [facility], XR CHEST 1V PORTABLE, 03/14/2024 02/19/2024 Telephone [facility] [address] [place] [address] Pavel Morgan MD Form 02/14/2024 Refill [facility] [address] [place] [address] Anamaria Lea, Refill Request (Propranolol Er) 02/07/2024 9:00 AM CDT - 02/07/2024 11:59 PM CDT Hospital Encounter [facility] ? [facility] [address] [place] [address] Pita Wyman MD Simmons, Brandon F, OT 02/07/2024 Travel from Last 3 Months Immunizations Name Administration Dates Next Due AMB Influenza, IIV3 (Age >=3 years)(Flu Clinic Only) 07/10/2013 COVID-19 vaccine (Moderna 50mcg/0.5mL) 12YO+ BIVALENT PF, MDV 08/30/2022 COVID-19 vaccine (Pfizer-Bio NTech 30mcg/0.3mL) PF, MDV 12/01/2020,11/10/2020 Hepatitis B (Adult) 02/18/2010,09/09/1994,1993 Influenza, IIV3 [...] Outcome GA Total Labor Labor/2nd/3rd Weight Sex Type Anes PTL Yumiko A1 A5 Name Clin IAB SAB 1991 Term 4.08 kg (9 lb) Vag Living Comments:episiotomy 1994 Term 3.18 kg (7 lb) Vag Living Last Filed Vital Signs Vital Sign Reading Time Taken Comments Blood Pressure 120/79 01/16/2024 10:22 AM CDT Pulse 71 01/16/2024 10:22 AM CDT Temperature 36.5 ??C (97.7 ??F) 01/16/2024 10:22 AM C DT Respiratory Rate 16 11/09/2023 8:44 PM [employer]PERVISOR BROADLO[employer] Oxygen Saturation 100% 01/16/2024 10:22 AM CDT [...] history exists Mammogram for age 45-75 09/15/2023 09/15/20 22, 08/27/2021, 07/31/2020, Additional history exists Pap test [...] Procedure Name Priority Date/Time Associated Diagnosis Comments SCAN-RADIOLOGY REPORT 03/14/2024 12:00 AM CDT LIPID PANEL W REFLEX MEASURED LDL Routine 01/16/2024 11:01 AM CDT Screening cholesterol level LC HCV ANTIBODY RFX TO QUANT PCR Routine 11/30/2022 12:12 PM [employer] Need for hepatitis C screening test XR MAMMO MEGHNA BILAT SCREEN Routine 09/15/2022 4:21 PM [employer] Visit for screening mammogram GEAR MACHINIST THIN PREP PAP SCREEN IMAGED Routine 05/30/2019 3:46 PM CDT Pap smear for cervical cancer screening SCAN-COLONOSCOPY 04/14/2017 12:0 0 AM CDT ANTI HIV 1/2 Routine 02/18/2010 9:41 AM CDT Screening for STDs (sexually transmitted diseases) from Last 3 Months or Most Recently Relevant to Health Maintenance Results * SCAN-RADIOLOGY REPORT (03/14/2024 12:00 AM CDT) Anatomical Region Laterality Modality Other Scanner OTHER * (ABNORMAL) LIPID PANEL W REFLEX MEASURED LDL (01/16/2024 11:01 AM CDT) CHOLESTEROL,TOTAL 217(H) 100 - 199 mg/dL 01/16/2024 5:10 PM CDT [facility] Comment: Cholesterol, Total Reference Ranges Desirable <200 mg/dL Borderline 200-239 mg/dL High >=240 mg/dL TRIGLYCERIDES 215(H) <150 mg/dL 01/16/2024 5:10 PM CDT [facility] HDL CHOLESTEROL 40(L) >40 mg/dL 5:10 PM CDT [facility] NON-HDL CHOLESTEROL 177(H) <145 mg/dl 01/16/2024 5:10 PM CDT [facility] CHOL/HDL RATIO 5.43(H) <4.50 01/16/2024 5:10 PM CDT [facility] LDL CHOLESTEROL 134(H) <=130 mg/dL 01/16/2024 5:10 PM CDT [facility] VLDL CHOLESTEROL 43(H) <=30 mg/dL 01/16/2024 5:10 PM CDT [facility] PROVIDER ORDERED STATUS RANDOM 01/16/2024 5:10 PM CDT [facility] Blood BLOOD SPECIMEN / Unknown Venipuncture / Unknown 01/16/2024 11:01 AM CDT 01/16/2024 11:03 AM CDT Pita Wyman MD [facility] [address] [place] [address], * HCV ANTIBODY RFX TO QUANT PCR (11/30/2022 12:12 PM SUPERVISOR BROADLO[employer]) HCV Ab Non Reactive Non Reactive 12/02/2022 11:09 AM [facility] Blood BLOOD SPECIMEN / Unknown Venipuncture / Unknown 11/30/2022 12:12 PM [employer]PERVISOR [employer]OADLOOM 11/30/2022 12:13 PM [employer] Narrative [facility] - 12/02/2022 11:09 AM SUPERVISOR BROADLOOM Performed at: ??[address] ??[id number] Official Greeter: Shiv Molina MD, Phone: ??[phone] Anamaria Lea DO LABORATORY [facility] ([facility]) [address] [place] [id number], * XR MAMMO MEGHNA BILAT SCREEN (09/15/2022 4:21 PM SUPERVISOR BROADLOOM) Anatomical Region Laterality Modality BREASTS, Breast Left, Breast Right Bilateral Mammography Impressions 09/16/2022 4:08 PM SUPERVISOR BROAD[employer]OM ??There is no radiographic evidence for malignancy. ??Recommend annual mammograms. MAMMOGRAM ASSESSMENT: ??ACR 1 Negative PATIENTS: You will also receive a letter with your examination results in an easy to read format. ??If you have questions about your results, please contact your referring provider. Narrative 09/16/2022 4:08 PM SUPERVISOR BROADLO[employer] For Patients: As a result of the Century Cures Act, medical imaging exams and procedure reports are released immediately into your electronic medical record. You may view this report before your referring provider. If you have questions, please contact your health care provider. XR MAMMO MEGHNA BILAT SCREEN [[id number]] CLINICAL HISTORY: ??This is an asymptomatic 51 y.o. patient. INDICATION FOR EXAM: Mammogram Screening. TECHNIQUE: CC & MLO views were obtained. ??This study was evaluated with the assistance of Computer-Aided Detection. Breast Tomosynthesis was used in interpretation. COMPARISON FILM: Yes 08/27/21 [facility] 07/16/20 [facility] FINDINGS: ??The breasts are heterogeneously dense, which may obscure small masses. There are no dominant masses, suspicious micro calcifications or areas of architectural distortion. Anamaria Lea DO MAMMO * GEAR MACHINIST THIN PREP PAP SCREEN IMAGED (05/30/2019 3:46 PM CDT) Case Report Gynecologic Cytology Report ? Case: [id number] ? Authorizing Provider: ??Reina Mathews, ??Collected: ? 05/30/2019 1546 ? PA ? Ordering Location: ? [facility] ?? Received: ?05/30/2019 1609 ? Clinic ? First Screen: ?Davidson Thao ? Specimen: ?GEAR MACHINIST ThinPrep Vial Screening, Cervical ? 06/11/2019 2:44 PM CDT [facility]TRAL LABORATORY INTERPRETATION/ RESULT NEGATIVE FOR INTRAEPITHELIAL LESION OR MALIGNANCY (NIL) (none) 06/11/2019 2:44 PM CDT [facility]- ENTRAL LABORATORY NISM(S) Shift in harrison suggestive of bacterial vaginosis 06/11/2019 2:44 PM CDT [facility] LABORATORY-C ENTRAL LABORATORY SPECIMEN ADEQUACY Satisfactory for evaluation No endocervical component seen 06/11/2019 2:44 PM CDT [facility] LABORATORY-C ENTRAL LABORATORY HPV REQUEST HPV and PAP 06/11/2019 2:44 PM CDT [facility] LABORATORY Date of LMP ablation 06/11/2019 2:44 PM CDT [facility] Last Pap Date 10/21/15 06/11/2019 2:44 PM CDT [facility] Last Pap Result NIL 9 2:44 PM CDT [facility] Abnormal Pap or [place] Bx in last 5 years No 06/11/2019 2:44 PM CDT [facility] Menstrual Status Ablation 06/11/2019 2:44 PM CDT [facility] [place] Bx Done Today No 06/11/2019 2:44 PM CDT [facility] Additional Information None given 06/11/2019 2:44 PM CDT [facility] Automated Review Successful 06/11/2019 2:44 PM CDT [facility] Comment:Specimen processed s uccessfully by automated cytotechnologist/cytology supervisor device, ThinPrep Imaging System, [employer] ANCILLARY TESTING GEAR MACHINIST HPV Ordered, Please see separate report 06/11/2019 2:44 PM CDT [facility] Note The pap test is a screening [...] lesions. Cytology is screened and interpreted at [facility] - [address], [place] [address] and [facility] - [address] [place] [address]; [place] [address] and [facility] - [address]; [place] [address] and [facility] [address]; [place] [address] 06/11/2019 2:44 PM CDT [facility] Other (Cervical) Non-Blood / Unknown 05/30/2019 3:46 PM CDT 05/30/2019 4:09 PM CDT Reina [facility] PATHOLOGY/CYT OLOGY [facility] LABORATORY-CENTRAL LABORATORY [address] [place] [address], * SCAN-COLONOSCOPY (04/14/2017 12:00 AM CDT) Scanner OTHER * HIV (02/18/2010 9:41 AM CDT) ANTI HIV 1/2 Non-reacti ve [facility] Blood specimen (specimen) BLOOD SPECIMEN / Unknown 02/18/2010 9:41 AM CDT 02/18/2010 9:35 AM CDT Jovan Smalls MD SEND OUTS [facility] LABORATORY INTERNAL ZIP [address] [place] [id number] from Last 3 Months or Most Recently Relevant to Health Maintenance Care Teams Solar Electric Practitioner Relationship Specialty Start Date End Date Anamaria [place] [address] [place] [address] PCP - General Family Practice 10/25/19
== END 2024-05-04 17:15 | disposition home or self-care (01) ==
PROVIDERS: Emergency Provider Emergency Medicine; PCP Family Medicine
DX: S32.10XA Unspecified fracture of sacrum, initial encounter for closed fracture (principal); V43.52XA Car driver injured in collision with other type car in traffic accident, initial encounter; Y08.89XA Assault by other specified means, initial encounter
CPT/HCPCS: 72131; 74176; 99283; 99284

== ENCOUNTER 2024-06-21 01:39 | Emergency (ER) | payer OTHER, SELFPAY ==
[2024-06-21 01:52] VITALS: BP 119/82; PULSE 70; RESP 16; TEMP 36.5; O2SAT 97; BMI 24.1
--- NOTE | 2024-06-21 02:08 | ED_ITS ---
HPI - Extremity Injury (Lower) General Chief Complaint: Extremity Pain/Injury, Lower Stated Complaint: right knee pain Time Seen by Provider: 06/21/24 01:42 History of Present Illness HPI Narrative: Patient is a 53-year-old woman who unfortunately struck the medial aspect of her right [place] [employer] [place] 8 hours [place]. She fell since she has severe pain that she dropped her subway sandwich. She was able to walk and has been ambulatory since that time but the pain is severe over the medial aspect of her knee. She has had no skin breakdown. She has no other injuries. She has no erythema or edema. No other joint injuries patient is otherwise feeling fine. Related Data Home Medications ?Medication ?Instructions ?Recorded ?Confirmed duloxetine 60 mg capsule,delayed mg PO 09/14/22 05/04/24 release levothyroxine 100 mcg tablet mcg 09/14/22 05/04/24 pregabalin 150 mg capsule mg 09/14/22 05/04/24 pregabalin 75 mg capsule mg 09/14/22 05/04/24 propranolol 10 mg tablet mg 09/14/22 05/04/24 buspirone 15 mg tablet 15 mg PO BID 05/04/24 05/04/24 Allergies Allergy/AdvReac Type Severity Reaction Status Date / Time ethinyl estradiol Allergy Verified 05/04/24 13:12 [From Seasonale ()] levonorgestrel Allergy Verified 05/04/24 13:12 [From Seasonale (91)] adhesive AdvReac Intermediate Verified 05/04/24 13:12 ketorolac [From Toradol] AdvReac Unknown Verified 05/04/24 13:12 tramadol AdvReac Verified 05/04/24 13:12 Review of Systems Status of ROS: Reports: 10 or more systems reviewed and unremarkable except as noted in History and below [facility] Social History Smoking Status: Current some day smoker What tobacco products do you use: cigarettes Do you use any of these nicotine containing products: None Second hand tobacco smoke exposure: No How often do you have a drink containing alcohol: 2-4 times a month How many standard drinks containing alcohol do you have on a typical day: 1 or 2 How often do you have six or more drinks on one occasion: Never AUDIT-C Alcohol total score: 2 Non-prescribed substance use: marijuana (any form) service: No Exam Narrative: Exam Narrative: EXAM GENERAL: Patient appears comfortable and well. EYES: No scleral icterus. LYMPH: No supraclavicular or cervical lymphadenopathy. SKIN: Visible skin seen during exam normal or with benign process only. EXT: No dependent lower extremity pedal edema. Examination the right knee shows no pain to palpation normal range of motion. HEART: Regular rate and rhythm with no murmurs, rubs, or gallops. LUNGS: Clear to auscultation bilaterally with no crackles or wheezes. ABD: Soft, non tender, non distended. PSYCH: Good eye contact, speech is not pressured. Const: Vital Signs, click to edit/add: Vital Signs - 24 hr 06/21/24 01:52 Temperature 97.7 F Pulse Rate [Pulse Oximeter] 70 Respiratory Rate 16 Blood Pressure [Ri ght Upper Arm] 119/82 Pulse Oximetry 97 Oxygen Delivery Me thod Room Air Course Course ED Course: Patient seen and examined. X-ray right knee pending. Vital Signs Vital signs: Initial Vital Signs Temperature 97.7 F 06/21/24 01:52 Temperature Source Temporal Artery Scan 06/21/24 01:52 Pulse Rate 70 06/21/24 01:52 Respiratory Rate 16 06/21/24 01:52 Blood Pressure 119/82 06/21/24 01:52 Blood Pressure Mean 94 06/21/24 01:52 Blood Pressure Position Sitting 06/21/24 01:52 Pulse Oximetry 97 06/21/24 01:52 Oxygen Delivery Method Room Air 06/21/24 01:52 Vital Signs Temperature 97.7 F 06/21/24 01:52 Pulse Rate 70 06/21/24 01:52 Respiratory Rate 16 06/21/24 01:52 Blood Pressure 119/82 06/21/24 01:52 Pulse Oximetry 97 06/21/24 01:52 Oxygen Delivery Method Room Air 06/21/24 01:52 Temperature 97.7 F 06/21/24 01:52 Pulse Rate 70 06/21/24 01:52 Respiratory Rate 16 06/21/24 01:52 Blood Pressure 119/82 06/21/24 01:52 Pulse Oximetry 97 06/21/24 01:52 Oxygen Delivery Method Room Air 06/21/24 01:52 MDM - Extremity Injury (Lower) MDM Narrative Medical decision making narrative: Patient presents with a contusion to the right knee. She has a normal exam and has no other injuries. X-ray series of the right knee is negative upon my review. This time I would recommend ice Tylenol Motrin rest and follow-up with her primary physician in 3-5 days if not better to consider MRI. Discharge Plan Discharge Clinical Impression: Knee sprain Patient Disposition: Home, Self-Care Condition: Stable Instructions: Knee Sprain (ED) Additional Instructions: Tylenol Motrin Ice Rest Follow-up with your doctor. Activity Level: No Restrictions Discharge Diet: Regular Prescriptions: No Action buspirone 15 mg tablet 15 mg PO BID levothyroxine 100 mcg tablet propranolol 10 mg tablet duloxetine 60 mg capsule,delayed release(DR/EC) PO pregabalin 75 mg capsule pregabalin 150 mg capsule Follow Up/Referrals: Anamaria Lea DO [Primary Care Provider] - Stand Alone Forms: [employer] Info Instructions
--- NOTE | 2024-06-21 02:08 | CRLHL7_ITS ---
For Patients: As a result of the Cures Act, medical imaging exams and procedure reports are released immediately into your electronic medical record. You may view this report before your referring provider. If you have questions, please contact your health care provider. Indication: Injury, slipped on floor Technique: Three views of the right knee Comparison: None Findings/Impression: No acute radiographic abnormality appreciated. Dictated by Adalid Tracey MD @ 06/21/2024 3:18:55 AM (Electronically Signed)
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
== END 2024-06-21 02:36 | disposition home or self-care (01) ==
PROVIDERS: Emergency Provider Internal Medicine; PCP Family Medicine
DX: S83.91XA Sprain of unspecified site of right knee, initial encounter (principal)
CPT/HCPCS: 73562; 99283

== ENCOUNTER 2024-08-25 23:36 | Emergency (ER) | payer OTHER, SELFPAY ==
[2024-08-25 23:41] VITALS: BP 155/97; PULSE 82; RESP 16; TEMP 36.9; O2SAT 99
[2024-08-26 00:45] LABS: Basophils Percent Auto 0.2 % (0.0-3.0); Eosinophils Percent Auto 2.6 % (0.0-7.0); Hematocrit 41.3 % (33.0-51.0); Hemoglobin* 14.2 gm/dL (12.0-16.0); Lymphocytes Percent Auto 26.4 % (20-44); Mean Corpuscular HGB Conc 34 gm/dL (32-36); Mean Corpuscular Hemoglobin 33 pg (26-34); Mean Corpuscular Volume 95 fL (80-100); Monocytes Percent Auto 5.7 % (0.0-11.0); Neutrophils Percent Auto 64.1 % (42.0-72.0); Platelet Count* 319 K/uL (140-440); RDW Coefficient of Variation % 12.6 % (11.5-15.5); Red Blood Count 4.37 m/uL (4.00-5.20); White Blood Count* 11.35 K/uL (4.50-11.00)
[2024-08-26 00:52] LABS: Slide Review Reflex No
--- OUTSIDE RECORDS SUMMARY | 2024-08-26 00:56 | XMS_ITS | Clinical Summary ---
Author Organization [facility] Address [place], [place] [address] Care Team Providers Care Inbound Customer Service Agent Name Role Phone Anamaria Lea Primary Care Provider [phone] Allergies Active Allergy Reactions Criticality Noted Date Comments Adhesive Rash High 10/14/2015 Ethinyl Estradiol *Unknown 05/04/2024 Ketorolac *Unknown 03/14/2024 patient cannot remember reaction Levonorgestrel *Unknown 05/04/2024 Tramadol Itching 05/13/2019 Patient cannot remember reaction Unlisted Allergen (Include Detail In Comments) Runny [...] (ATROVENT NASAL) 42 mcg (0.06 %) nasal sprayIndications: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 INSTILL 2 SPRAYS IN EACH [...] 11/21/2023 Active celecoxib (CELEBREX) 200 mg capsuleIndications:Urmila shi facet arthropathy Take 1 Capsule (200 mg) [...] Active Problems Problem Noted Date Diagnosed Date Tobacco dependence 07/29/2024 Restless legs syndrome (RLS) 03/03/2021 Prediabetes 12/24/2020 [...] Encounters Date Type Department Care Team Description 08/15/2024 Telephone [facility] [address] [place] [address] Pavel Morgan MD Work Note (Need note for work ) 08/12/2024 Telephone [facility] [address] [facility] [place] [address] Pavel Morgan MD Results 08/08/2024 1:15 PM CDT Ancillary Procedure [facility] [place] [address] 08/08/2024 Travel 08/05/2024 Telephone [facility] [address] [facility] [place] [address] Pavel Morgan MD Appointment 07/29/2024 7:30 AM CDT Office Visit [facility] [place] [address] Julian Moore MD Concerns (Voice going in and out- last few months. Did happen once last year. No sickness when it happens. ); Immunization/Injection 07/29/2024 Travel 07/24/2024 11:30 AM CDT Ancillary Procedure [facility] [place] [address] 07/24/2024 10:40 AM CDT Office Visit [facility] [place] [address] Pavel Morgan MD Musculoskeletal Problem (Follow up back pain) 07/24/2024 Travel 06/21/2024 Orders Only [facility] Scanner 1 scan: (1-Ord) [facility], [facility] [address], 06/21/2024 from Last 3 Months Immunizations Name Administration Dates Next Due AMB Influenza, IIV3 (Age >=3 years)(Flu Clinic Only) 07/10/2013 COVID-19 vaccine (Moderna 50mcg/0.5mL) 12YO+ BIVALENT PF, MDV 08/30/2022 COVID-19 vaccine (Pfizer-Bio NTech 30mcg/0.3mL) PF, MDV 12/01/2020,11/10/2020 Hepatitis B (Adult) 02/18/2010,09/09/1994,1993 INFLUENZA, IIV3 PF (AGE >= 6 MO) 07/29/2024 Influenza, IIV3 (Age >=3 years) 07/10/2013,07/15,08/30/2003 Influenza, IIV4 07/07/2023, 2,08/27/2021, 020,06/09/2019,06/08/2018,07/20/2017,,08/03/2015,07/03/2014 Td (Age >=7 Years) 05/13/2019,01/02/2003 Tdap [...] 1 01/16/2024 Social Connections Answer Date Recorded Do you often feel lonely or isolated from those around you? 0 11/21/2023 Alcohol Use Answer Date Recorded [...] 2 11/21/2023 Food Insecurity Answer Date Recorded Do you worry your food will run out before you are able to buy more? 1 11/21/2023 Transportation Needs Answer Date Record ed Does lack of transportation keep you from medica l appointments? 1 11/21/2023 Does lack of transportation keep you from work, meetings or getting things that you need? 1 11/21/2023 Housing Stability Answer Date Recorded What is your housing situation today? 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 [employer] Oxygen Saturation 98% 07/29/2024 7:42 AM CDT Inhaled Oxygen Concentration - - Weight 66.4 kg (146 lb 6.4 oz) 05/09/2024 11:14 AM CDT Height 164.6 cm (5' 4.8) 01/16/2024 10:22 AM CD T Body Mass Index 24.51 01/16/2024 10:22 AM CDT Plan of Treatment Upcoming Encounters Date Type Department Care Team (Late st Contact Info) Description 09/19/2024 11:15 AM WAITER/WAITRESS [employer]ING [employer] Office Visit [address] [id number] Tarik Park-João Dangelo MD [address] [facility] [address] [place] [address] Health Maintenance Due Date Last Done Comments Pneumococcal series for age 6-64 (1 of 2 - PCV) 1976 Mammogram for age 45-75 09/15/2023 09/15/20 22, 08/27/2021, 07/31/2020, Additional history exists Pap test for age 21-65 05/30/2024 9, 05/30/2019, 10/21/2015, Additional history exists COVID-19 vaccine series (2023- season) 2024 08/30/2022, 09/23/2021, 12/01/2020, Additional history exists BMI (ht and wt [...] series for age 50+ Completed 11/30/2022, 08/27/2021 Influenza for age 50-64 Completed 07/29/20 24, 07/07/2023, 08/30/2022, Additional history exists Procedures Procedure Name Priority Date/Time Associated Diagnosis Comments MR SPINE LUMBAR WO Routine 08/08/2024 2: 02 PM CDT Lumbar radiculopathy Lumbar facet arthropathy Bulging lumbar disc Closed fracture of sacrum and coccyx with routine healing, subsequent encounter XR SACRUM AND COCCYX MINIMUM 2 VIEWS Routine 07/24/2024 11:44 AM CDT Lumbar facet arthropathy Closed fracture of sacrum and coccyx with routine healing, subsequent encounter SCAN-RADIOLOGY REPORT 06/21/2024 12:00 AM CDT LIPID PANEL W REFLEX MEASURED LDL Routine 01/16/2024 11:01 AM CDT Screening cholesterol level LC HCV ANTIBODY RFX TO QUANT PCR Routine 11/30/2022 12:12 PM WAITER/[employer]RESS [employer] Need for hepatitis C screening test XR MAMMO MEGHNA BILAT SCREEN Routine 09/15/2022 4:21 PM WAITER/[employer]RESS [employer]ING [employer] Visit for screening mammogram MATE FISHING VESSEL THIN PREP PAP SCREEN IMAGED Routine 05/30/2019 3:46 PM CDT Pap smear for cervical cancer screening SCAN-COLONOSCOPY 04/14/2017 12:0 0 AM CDT ANTI HIV 1/2 Routine 02/18/2010 9:41 AM CDT Screening for STDs (sexually transmitted diseases) from Last 3 Months or Most Recently Relevant to Health Maintenance Results * MR SPINE LUMBAR WO (08/08/2024 2:02 PM CDT) Anatomical Region Laterality Modality Spine, LUMBAR SPINE Magnetic Res onance 08/09/2024 11:3 9 AM CDT Narrative 08/09/2024 11:39 AM CDT For Patients: ??As a result of the Century Cures Act, medical imaging exams and procedure reports are released immediately into your electronic medical record. ??You may view this report before your referring provider. ??If you have questions, please contact your health care provider. Indication: Lumbar radiculopathy. Lumbar facet arthropathy. Bulging lumbar disc. Closed fracture of sacrum and coccyx with routine healing, subsequent encounter. Technique: Multiplanar, multisequence, MRI of the lumbar spine, obtained without contrast. Comparison: MRI lumbar spine 12/11/2023 Findings: Normal spinal alignment. No significant spondylolisthesis. Vertebral body heights are maintained. No acute osseous abnormality identified. Mild Modic type 1 opposing endplate changes at L3-4. No suspicious bone marrow lesion. Conus medullaris terminates at L1. No concerning findings identified in the paraspinal soft tissues. Included SI joints are unremarkable. T11-T12: Mild diffuse disc bulge, mild facet arthropathy. No neural foraminal or spinal canal stenosis. T12-L1: Minimal right subarticular protrusion. No neural foraminal or spinal canal stenosis. L1-L2: No neural foraminal or spinal canal stenosis. L2-L3: Mild diffuse disc bulge, mild facet arthropathy. No neural foraminal or spinal canal stenosis. L3-L4: Mild diffuse disc bulge. No neural foraminal or spinal canal stenosis. L4-L5: Mild diffuse disc bulge with similar broad-based left central to foraminal protrusion and left foraminal cranial disc extrusion, dorsally displacing and potentially impinging the descending left L5 nerve root. No neural foraminal or central spinal canal stenosis. L5-S1: No neural foraminal or spinal canal stenosis. Impression: 1. No acute osseous abnormality. Normal spinal alignment. 2. Scattered spondylosis, not significantly progressed relative to 07/07/2022. 3. At L4-L5, similar broad-based left central to foraminal disc protrusion, dorsally displacing and potentially impinging the descending left L5 nerve root. 4. No high-grade neural foraminal or central spinal canal stenosis. Dictated by Jailyn Turcios MD @ 08/09/2024 11:39:32 AM (Electronically Signed) Procedure Note Jailyn Turcios, - 08/09/2024 For Patients: As a result of the Century Cures Act, medical imagingexams and procedure reports are released immediately into your electronicmedical record. You may view this report before your referring provider.If you have questions, please contact your health care provider. Indication: Lumbar radiculopathy. Lumbar facet arthropathy. Bulging lumbar disc.Closed fracture of sacrum and coccyx with routine healing, subsequentencounter. Technique: Multiplanar, multisequence, MRI of the lumbar spine, obtained withoutcontrast. Comparison: MRI lumbar spine 12/11/2023 Findings: Normal spinal alignment. No significant spondylolisthesis. Vertebral bodyheights are maintained. No acute osseous abnormality identified. MildModic type 1 opposing endplate changes at L3-4. No suspicious bone marrowlesion. Conus medullaris terminates at L1. No concerning findingsidentified in the paraspinal soft tissues. Included SI joints areunremarkable. T11-T12: Mild diffuse disc bulge, mild facet arthropathy. No neuralforaminal or spinal canal stenosis. T12-L1: Minimal right subarticular protrusion. No neural foraminal orspinal canal stenosis. L1-L2: No neural foraminal or spinal canal stenosis. L2-L3: Mild diffuse disc bulge, mild facet arthropathy. No neuralforaminal or spinal canal stenosis. L3-L4: Mild diffuse disc bulge. No neural foraminal or spinal canalstenosis. L4-L5: Mild diffuse disc bulge with similar broad-based left central toforaminal protrusion and left foraminal cranial disc extrusion, dorsallydisplacing and potentially impinging the descending left L5 nerve root. Noneural foraminal or central spinal canal stenosis. L5-S1: No neural foraminal or spinal canal stenosis. Impression: 1. No acute osseous abnormality. Normal spinal alignment. 2. Scattered spondylosis, not significantly progressed relative to07/07/2022. 3. At L4-L5, similar broad-based left central to foraminal discprotrusion, dorsally displacing and potentially impinging the descendingleft L5 nerve root. 4. No high-grade neural foraminal or central spinal canal stenosis. Dictated by Jailyn Turcios MD @ 08/09/2024 11:39:32 AM (Electronically Signed) Pavel Morgan MD MR * XR SACRUM AND COCCYX MINIMUM 2 VIEWS (07/24/2024 11:44 AM CDT) Anatomical Region Laterality Modality Pelvis, SACRUM, COCCYX Computed Radiography 07/27/2024 7:19 AM CDT Impressions 07/27/2024 7:19 AM CDT 1. ??No acute fracture evident radiographically. No malalignment. Dictated by Matti James MD @ 07/27/2024 7:19:59 AM (Electronically Signed) Narrative 07/27/2024 7:19 AM CDT For Patients: ??As a result of the Cures Act, medical imaging exams and procedure reports are released immediately into your electronic medical record. ??You may view this report before your referring provider. ??If you have questions, please contact your health care provider. HISTORY: Closed fracture of the sacrum and coccyx with routine healing. TECHNIQUE: Three views of the sacrum and coccyx. COMPARISON: CT from 03/22/2022. FINDINGS: No acute sacral or coccygeal fracture is evident radiographically. No significant malalignment. No sacroiliac joint erosive change or ankylosis. There are mild sacroiliac joint degenerative changes. Procedure Note Matti James MD - 07/27/2024 For Patients: As a result of the Cures Act, medical imagingexams and procedure reports are released immediately into your electronicmedical record. You may view this report before your referring provider.If you have questions, please contact your health care provider. HISTORY: Closed fracture of the sacrum and coccyx with routine healing. TECHNIQUE: Three views of the sacrum and coccyx. COMPARISON: CT from 03/22/2022. FINDINGS: No acute sacral or coccygeal fracture is evident radiographically. Nosignificant malalignment. No sacroiliac joint erosive change or ankylosis.There are mild sacroiliac joint degenerative changes. IMPRESSION: 1. No acute fracture evident radiographically. No malalignment. Dictated by Matti James MD @ 07/27/2024 7:19:59 AM (Electronically Signed) Pavel Morgan MD GENERAL IMAGING * SCAN-RADIOLOGY REPORT (06/21/2024 12:00 AM CDT) Anatomical Region Laterality Modality Other Scanner OTHER * (ABNORMAL) LIPID PANEL W REFLEX MEASURED LDL (01/16/2024 11:01 AM CDT) CHOLESTEROL,TOTAL 217(H) 100 - 199 mg/dL 01/16/2024 5:10 PM CDT [facility] TRAL LAB[facility]ATORY Comment: Cholesterol, Total Reference Ranges Desirable <200 mg/dL Borderline 200-239 mg/dL High >=240 mg/dL TRIGLYCERIDES 215(H) <150 mg/dL 01/16/2024 5:10 PM CDT [facility] TR[facility] HDL CHOLESTEROL 40(L) >40 mg/dL 5:10 PM CDT [facility] NON-HDL CHOLESTEROL 177(H) <145 mg/dl 01/16/2024 5:10 PM CDT [facility] CHOL/HDL RATIO 5.43(H) <4.50 01/16/2024 5:10 PM CDT [facility] LDL CHOLESTEROL 134(H) <=130 mg/dL 01/16/2024 5:10 PM CDT [facility] TR[facility] VLDL CHOLESTEROL 43(H) <=30 mg/dL 01/16/2024 5:10 PM CDT [facility] TRAL LAB[facility]AT[facility] PROVIDER ORDERED STATUS RANDOM 01/16/2024 5:10 PM T [facility] TRA LABORATORY Blood BLOOD SPECIMEN / Unknown Venipuncture / Unknown 01/16/2024 11:01 AM CDT 01/16/2024 11:03 AM CDT Pita Wyman MD [facility] [address] [place] [address], * LC HCV ANTIBODY RFX TO QUANT PCR (11/30/2022 12:12 PM WAITER/WAITRESS DINING CAR) HCV Ab Non Reactive Non Reactive 12/02/2022 11:09 AM WAITER/WAITRESS DINING CAR [facility] Blood BLOOD SPECIMEN / Unknown Venipuncture / Unknown 11/30/2022 12:12 PM WAITER/WAITRESS DINING CAR 11/30/2022 12:13 PM WAITER/WAITRESS DINING CAR Narrative [facility] - 12/02/2022 11:09 AM WAITER/WAITRESS DINING CAR Performed at: ??[address] ??[id number] Apprentice Lineman Third Step: Shiv Molina MD, Phone: ??[phone] Anamaria Lea DO LABORATORY [facility] ([facility]) [address] [place] [id number], * XR MAMMO MEGHNA BILAT SCREEN (09/15/2022 4:21 PM WAITER/WAITRESS DINING CAR) Anatomical Region Laterality Modality BREASTS, Breast Left, Breast Right Bilateral Mammography Impressions 09/16/2022 4:08 PM WAITER/WAITRESS DINING CAR ??There is no radiographic evidence for malignancy. ??Recommend annual mammograms. MAMMOGRAM ASSESSMENT: ??ACR 1 Negative PATIENTS: You will also receive a letter with your examination results in an easy to read format. ??If you have questions about your results, please contact your referring provider. Narrative 09/16/2022 4:08 PM WAITER/WAITRESS DINING CAR For Patients: As a result of the Cures Act, medical imaging exams and procedure reports are released immediately into your electronic medical record. You may view this report before your referring provider. If you have questions, please contact your health care provider. XR MAMMO MEGHNA BILAT SCREEN [[id number]] CLINICAL HISTORY: ??This is an asymptomatic 51 y.o. patient. INDICATION FOR EXAM: Mammogram Screening. TECHNIQUE: CC & MLO views were obtained. ??This study was evaluated with the assistance of Computer-Aided Detection. Breast Tomosynthesis was used in interpretation. COMPARISON FILM: Yes 08/27/21 [employer] 07/16/20 [employer] FINDINGS: ??The breasts are heterogeneously dense, which may obscure small masses. There are no dominant masses, suspicious micro calcifications or areas of architectural distortion. Anamaria Lea DO MAMMO * MATE FISHING VESSEL THIN PREP PAP SCREEN IMAGED (05/30/2019 3:46 PM CDT) Case Report Gynecologic Cytology Report ? Case: [id number] ? Authorizing Provider: ??Bisi, Reina Granados, ??Collected: ? 05/30/2019 1546 ? PA ? Ordering Location: ? [facility] ?? Received: ?05/30/2019 1609 ? Clinic ? First Screen: ?Davidson Thao ? Specimen: ?MATE FISHING VESSEL ThinPrep Vial Screening, Cervical ? 06/11/2019 2:44 PM CDT [facility] INTERPRETATION/ RESULT NEGATIVE FOR INTRAEPITHELIAL LESION OR MALIGNANCY (NIL) (none) 06/11/2019 2:44 PM CDT [facility] NISM(S) Shift in harrison suggestive of bacterial vaginosis 06/11/2019 2:44 PM CDT [facility] SPECIMEN ADEQUACY Satisfactory for evaluation No endocervical component seen 06/11/2019 2:44 PM CDT [facility] HPV REQUEST HPV and PAP 06/11/2019 2:44 PM CDT [facility] EN[facility] Date of LMP ablation 06/11/2019 2:44 PM CDT [facility] Last Pap Date 10/21/15 06/11/2019 2:44 PM CDT [facility] Last Pap Result NIL 9 2:44 PM CDT [facility] Abnormal Pap or Ferrum Bx in last 5 years No 06/11/2019 2:44 PM CDT [facility] EN[facility]AL [facility] Menstrual Status Ablation 06/11/2019 2:44 PM CDT [facility] Ferrum Bx Done Today No 06/11/2019 2:44 PM CDT [facility] Additional Information None given 06/11/2019 2:44 PM CDT [facility] Automated Review Successful 06/11/2019 2:44 PM CDT [facility] Comment:Specimen processed s uccessfully by automated library historian device, ThinPrep Imaging System, [employer] ANCILLARY TESTING MATE FISHING VESSEL HPV Ordered, Please see separate report 06/11/2019 2:44 PM CDT [facility] Note The pap test is a [...] lesions. Cytology is screened and interpreted at [facility] Central Laboratory - [address], [place] [address] and [facility] - [address] [place] [address]; [place] [address] and [facility] - [address]; [place] [address] and [facility] [address]; [place] [address] 06/11/2019 2:44 PM CDT [facility]-C ENTRAL LABORATORY Other (Cervical) Non-Blood / Unknown 05/30/2019 3:46 PM CDT 05/30/2019 4:09 PM CDT Reina ROYAL PATHOLOGY/CYT OLOGY [facility]-CENTRAL LABORATORY [address] [place] [address], * SCAN-COLONOSCOPY (04/14/2017 12:00 AM CDT) Scanner OTHER * HIV (02/18/2010 9:41 AM CDT) ANTI HIV 1/2 Non-reacti ve [facility] Blood specimen (specimen) BLOOD SPECIMEN / Unknown 02/18/2010 9:41 AM CDT 02/18/2010 9:35 AM CDT Jovan Smalls MD SEND OUTS [facility] INTERNAL ZIP [address] [place] [id number] from Last 3 Months or Most Recently Relevant to Health Maintenance Care Teams Inbound Customer Service Agent Relationship Specialty Start Date End Date Anamaria [place] [address] PCP - General Family Practice 10/25/19
[2024-08-26 01:04] LABS: Chloride* 102 mmol/L (96-114)
[2024-08-26 01:05] LABS: Potassium* 3.6 mmol/L (3.6-5.1); Sodium* 135 mmol/L (135-149)
[2024-08-26 01:07] LABS: Creatinine* 0.6 mg/dL (0.5-1.5); Estimated Glomerular Filt Rate 107 ml/min
[2024-08-26 01:08] LABS: Anion Gap 8 mEq/L (7-15); Blood Urea Nitrogen* 14 mg/dL (7-30); Calcium* 9.5 mg/dL (8.4-10.6); Carbon Dioxide* 25 mmol/L (20-32); Glucose* 95 mg/dL (60-115)
[2024-08-26 01:12] LABS: C Reactive Protein* < 0.5 mg/dL (0.5-1.0)
[2024-08-26 01:13] LABS: Appearance CSF Clear (Clear); Color CSF Colorless (Colorless)
[2024-08-26 01:22] LABS: Glucose, CSF* 53 mg/dL (40-70); Total Protein, CSF 73 Mg/dL (15-45)
[2024-08-26] MEDS: LIDOCAINE 1% 5 ml (pf) 5 ML VIAL INJECTION (01:22)
[2024-08-26 01:30] LABS: CSF Mononuclear Cells 0 %; CSF Polynuclear Cells 0 %; RBC, CSF 0 Cells/uL; WBC, CSF 0 Cells/uL
--- NOTE | 2024-08-26 01:40 | ED_ITS ---
HPI - General Adult General Date Seen: 08/26/24 Chief complaint: Extremity Pain/Injury, Lower Stated complaint: difficulty walking Time Seen by Provider: 08/25/24 23:57 Source: patient, RN notes reviewed and old records reviewed Mode of arrival: ambulatory Limitations: no limitations History of Present Illness HPI narrative: Patient is a 53-year-old woman who is here with her stepdad for evaluation of bilateral leg weakness. She says her legs have felt just generally wobbly and weak all day today. She does not have any sensory changes and does not have any leg pain. She notes that she has had problems like this in the past related to her back, but nothing this persistent and this feels worse than what she previously has experienced. She does have a history of chronic back pain, possible disc herniations although I do not see any prior imaging in our system. She denies any bowel or bladder changes. No recent fevers. No unexpected weight loss. She did have a viral infection a couple of weeks ago which she says included a cough, congestion, no high fevers. She does smoke cigarettes, trying to quit. Drinks occasionally, smokes marijuana occasionally. Denies any other drug history. Related Data Home Medications ?Medication ?Instructions ?Recorded ?Confirmed duloxetine 60 mg capsule,delayed mg PO 09/14/22 05/04/24 release levothyroxine 100 mcg tablet mcg 09/14/22 05/04/24 pregabalin 150 mg capsule mg 09/14/22 05/04/24 pregabalin 75 mg capsule mg 09/14/22 05/04/24 propranolol 10 mg tablet mg 09/14/22 05/04/24 buspirone 15 mg tablet 15 mg PO BID 05/04/24 08/25/24 celecoxib 200 mg capsule mg PO 08/25/24 gabapentin 300 mg capsule 300 mg PO DAILY 08/25/24 08/25/24 Allergies Allergy/AdvReac Type Severity Reaction Status Date / Time ethinyl estradiol (From Allergy Verified 05/04/24 13:12 Seasonale ()) levonorgestrel (From Allergy Verified 05/04/24 13:12 Seasonale (91)) adhesive AdvReac Intermediate Verified 05/04/24 13:12 ketorolac (From Toradol) AdvReac Unknown Verified 05/04/24 13:12 tramadol AdvReac Verified 05/04/24 13:12 Review of Systems Status of ROS: Reports: 10 or more systems reviewed and unremarkable except as noted in History and below [facility] Social History Smoking Status: Current some day smoker What tobacco products do you use: cigarettes Do you use any of these nicotine containing products: None Second hand tobacco smoke exposure: No How often do you have a drink containing alcohol: 2-4 times a month How many standard drinks containing alcohol do you have on a typical day: 1 or 2 How often do you have six or more drinks on one occasion: Never AUDIT-C Alcohol total score: 2 Non-prescribed substance use: marijuana (any form) service: No Exam Narrative: Exam Narrative: Vital signs as noted above. In general, an alert, well-appearing patient. She is pleasant, cooperative. Head: Normocephalic, atraumatic. Eyes: Pupils are equal reactive. Extraocular movements are full. Conjunctivae are normal. ENT: Mucous membranes are moist. Throat is normal. Neck: Supple without lymphadenopathy. Heart: Regular rate and rhythm. No murmur or rub. Lungs: Clear bilaterally. No increased work of breathing, crackles or wheezes. Abdomen: Soft and nontender. No organomegaly. Extremities: Well perfused. No edema. No calf tenderness. Pulses intact. Neurologic: Patient is alert and oriented to person and place. Speech is fluent. Face is symmetric. She has 5/5 strength in upper extremities, she also has 5/5 strength when lower extremities are tested, but her gait was very slow and methodically and slightly imbalanced in the right leg. Reflexes are 0/5 in the left knee, bilateral ankles. 1+ out of 5 in the right patellar. Affect: Normal. Skin: Warm and dry. Well perfused. Const: Vital Signs, click to edit/add: Vital Signs - 24 hr 08/25/24 23:41 08/26/24 02:11 Temperature 98.4 F Pulse Rate [Pulse Oximeter] 82 63 Respiratory Rate 16 18 Blood Pressure [Ri ght Upper Arm] 155/97 H 150/94 H Pulse Oximetry 99 97 Oxygen Delivery Me thod Room Air Room Air Documenting provider has reviewed patient's vital signs: yes Course Course ED Course: Based on patient's presentation and exam, my primary concern was for Guillain- [place]. Other diagnostic considerations would include an intracranial process, felt to be less likely due to the bilateral nature of her symptoms, similarly, less likely to be related to her low back in the absence of sensory changes, bowel or bladder changes. She had an IV placed, labs were drawn. I recommended lumbar puncture to evaluate for elevated protein. Risks and benefits of the procedure were discussed including small risk of bleeding or infection, 10% risk of post spinal headache and need for additional procedure to manage. She agreed to proceed. Procedure note: Patient was placed in a seated position, landmarks identified, and skin cleaned with Betadine. The skin and soft tissues were anesthetized using lidocaine with out epinephrine and then initially a 22 gauge needle was passed, I did not get fluid out and so I switched to a 20 gauge needle and at that point did get clear fluid out. This was sent to lab. She tolerated procedure well, stylette was replaced and needle removed, bandage was applied and we had her lay flat for the remainder for time the ER. Labs are notable for a mildly elevated serum white blood cell count of 11.3, hemoglobin of 14.2, normal platelets. Her CRP is normal, metabolic panel is normal, glucose 95. CSF is notable for 0 white cells, 0 red cells, a glucose of 53 and an elevated protein of 73. Case discussed with neurology on-call at [facility], transfer recommended. At this time, she is clinically stable and no specific treatment needed. She is accepted at [facility] within up to 8 hour bed delay. If she has significant progression of symptoms, will reassess. For now, observation. Vital Signs Vital signs: Initial Vital Signs Temperature 98.4 F 08/25/24 23:41 Temperature Source Temporal Artery Scan 08/25/24 23:41 Pulse Rate 82 08/25/24 23:41 Respiratory Rate 16 08/25/24 23:41 Blood Pressure 155/97 H 08/25/24 23:41 Blood Pressure Mean 116 H 08/25/24 23:41 Blood Pressure Position Supine 08/25/24 23:41 Pulse Oximetry 99 08/25/24 23:41 Oxygen Delivery Method Room Air 08/25/24 23:41 Vital Signs Temperature 98.4 F 08/25/24 23:41 Pulse Rate 82 08/25/24 23:41 Respiratory Rate 16 08/25/24 23:41 Blood Pressure 155/97 H 08/25/24 23:41 Pulse Oximetry 99 08/25/24 23:41 Oxygen Delivery Method Room Air 08/25/24 23:41 Temperature 98.4 F 08/25/24 23:41 Pulse Rate 63 08/26/24 02:11 Respiratory Rate 18 08/26/24 02:11 Blood Pressure 150/94 H 08/26/24 02:11 Pulse Oximetry 97 08/26/24 02:11 Oxygen Delivery Method Room Air 08/26/24 02:11 Medications Administered Medications: Generic Name Dose Route Start Last Admin Trade Name Freq PRN Reason Stop Dose Admin Lidocaine HCl 5 ml 08/26/24 01:18 08/26/24 01:22 Lidocaine 1% 5 Ml (Pf) 5 Ml Vial INJECTION 08/26/24 01:19 5 ml ONCE ONE Administration Medical Decision Making Lab Data Labs: Lab Results 08/26/24 08/26/24 Range/Units 00:01 00:50 WBC 11.35 H (4.50-11.00) K/uL RBC 4.37 (4.00-5.20) m/uL Hgb 14.2 (12.0-16.0) gm/dL Hct 41.3 (33.0-51.0) % MCV 95 (80-100) fL MCH 33 (26-34) pg MCHC 34 (32-36) gm/dL RDW Coeff of [place] 12.6 (11.5-15.5) % Plt Count 319 (140-440) K/uL Neut % (Auto) 64.1 (42.0-72.0) % Lymph % (Auto) 26.4 (20-44) % [place] % (Auto) 5.7 (0.0-11.0) % Eos % (Auto) 2.6 (0.0-7.0) % Baso % (Auto) 0.2 (0.0-3.0) % Neut # (Auto) 7.30 H (1.7-7.0) K/uL Lymph # (Auto) 3.00 H (0.90-2.90) K/uL [place] # (Auto) 0.60 (0.00-0.90) K/UL Eos # (Auto) 0.30 (0.00-0.50) K/uL Baso # (Auto) 0.00 (0.00-0.30) K/uL Abs Immat Gran (auto) 0.10 (0.00-0.30) K/uL Imm/Tot Granulo (auto) 1.0 % ESR 6 (2-20) mm/hr Sodium 135 (135-149) mmol/L Potassium 3.6 (3.6-5.1) mmol/L Chloride 102 (96-114) mmol/L Carbon Dioxide 25 (20-32) mmol/L Anion Gap 8 (7-15) mEq/L BUN 14 (7-30) mg/dL Creatinine 0.6 (0.5-1.5) mg/dL Estimated GFR 107 ml/min Glucose 95 (60-115) mg/dL Calcium 9.5 (8.4-10.6) mg/dL C-Reactive Protein < 0.5 L (0.5-1.0) mg/dL CSF Volume 4.0 (0-6) mL CSF Appearance Clear (Clear) CSF Color Colorless (Colorless) CSF WBC 0 Cells/uL CSF RBC 0 Cells/uL CSF Mononuclear Cells 0 % CSF Polynuclear WBCs 0 % CSF Glucose 53 (40-70) mg/dL CSF Total Protein 73 H (15-45) Mg/dL Discharge Plan 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
[2024-08-26 02:11] VITALS: BP 150/94; PULSE 63; RESP 18; O2SAT 97
[2024-08-26 02:42] LABS: Erythrocyte SedimentationRate* 6 mm/hr (2-20)
== END 2024-08-26 03:19 | disposition home or self-care (01) ==
PROVIDERS: Emergency Provider Emergency Medicine; PCP Family Medicine
DX: G61.0 Guillain-Barre syndrome (principal)
CPT/HCPCS: 62270; 36415; 80048; 82945; 84157; 85025; 85651; 86140; 87070; 89051; 99284

== ENCOUNTER 2024-08-26 03:00 | Outpatient (CLI) | payer OTHER, SELFPAY | END 2024-08-26 03:01 | disposition home or self-care (01) | PROVIDERS: PCP Family Medicine; Visit Provider Family Medicine | DX: G61.0 Guillain-Barre syndrome (principal) | CPT/HCPCS: A0425; A0427 ==

== ENCOUNTER 2024-09-04 22:44 | Emergency (ER) | payer OTHER, SELFPAY ==
[2024-09-04 22:50] VITALS: BP 171/99; PULSE 69; RESP 16; TEMP 36; O2SAT 99; BMI 23.0
--- NOTE | 2024-09-04 23:19 | ED_ITS ---
HPI - General Adult General Chief complaint: Nausea/Vomiting Stated complaint: fell, has been vomiting Time Seen by Provider: 09/04/24 23:13 History of Present Illness HPI narrative: pt reports tripping and falling about 30 minutes ago fell forward, bruised nose. Pt reports vomiting 1 hour ago. 53-year-old woman presenting to the emergency department with concern of trip and fall event shortly before arrival. Apparently vomited following this as well. She is not having any neck or back pain. No extremity injury. Does not remember the fall very well but did fall onto her face. Believes she fell because the left leg in particular is week. Dentition feels normal. Was seen here for 5 days ago with leg weakness. Discharge 4 days ago from [facility] after receiving treatment with IVIG for leg weakness and question of Guillain-[place] syndrome. Review of re cords show no growth from spinal fluid. MRI cervical spine with progressive disc degeneration moderate narrowing of the spinal canal at C5-6 and at C6-7 mild narrowing of the left neural foramen. I tried to clarify symptoms repeatedly. She describes a heaviness and a general weakness that is localized to the left leg knee down. Some tingling numbness over the dorsum of the foot as well. Not dissimilar to symptoms upon discharge from the hospital and admittedly did improve following IVIG. May have increased a little bit in the last day. Temporary tingling in her fingertips as well bilaterally. No fever. Related Data Home Medications ?Medication ?Instructions ?Recorded ?Confirmed duloxetine 60 mg capsule,delayed mg PO 09/14/22 05/04/24 release levothyroxine 100 mcg tablet mcg 09/14/22 05/04/24 pregabalin 150 mg capsule mg 09/14/22 05/04/24 pregabalin 75 mg capsule mg 09/14/22 05/04/24 propranolol 10 mg tablet mg 09/14/22 05/04/24 buspirone 15 mg tablet 15 mg PO BID 05/04/24 08/25/24 celecoxib 200 mg capsule mg PO 08/25/24 gabapentin 300 mg capsule 300 mg PO DAILY 08/25/24 08/25/24 Allergies Allergy/AdvReac Type Severity Reaction Status Date / Time ethinyl estradiol (From Allergy Verified 05/04/24 13:12 Seasonale (91)) levonorgestrel (From Allergy Verified 05/04/24 13:12 Seasonale (91)) adhesive AdvReac Intermediate Verified 05/04/24 13:12 ketorolac (From Toradol) AdvReac Unknown Verified 05/04/24 13:12 tramadol AdvReac Verified 05/04/24 13:12 Review of Systems Status of ROS: Reports: 6 or more systems reviewed and unremarkable except as noted in History and below [facility] Social History Smoking Status: Current some day smoker What tobacco products do you use: cigarettes Do you use any of these nicotine containing products: None Second hand tobacco smoke exposure: No How often do you have a drink containing alcohol: 2-4 times a month How many standard drinks containing alcohol do you have on a typical day: 1 or 2 How often do you have six or more drinks on one occasion: Never AUDIT-C Alcohol total score: 2 Non-prescribed substance use: marijuana (any form) service: No Exam Narrative: Exam Narrative: Very pleasant. Easily conversant. Breathing easily. Heart in regular rate and rhythm. Head with abrasion at the bridge of her nose. No bleeding. No septal hematoma. No depression of the nasal bridge. Cranial nerves 2-12 intact. Pupils are 6 mm and briskly reactive. Extraocular movements are intact. Moving extremities without difficulty though the left leg is mildly weak relative to the right. This includes all resisted motions of hip flexion , extension and flexion at the knee and flexion extension at the ankle. DTRs are 1+ and equal. Altered sensation of the dorsum of the foot. Neck is supple nontender. Back nontender. Has intact strength and sensation in the upper extremities. Const: Vital Signs, click to edit/add: Vital Signs - 24 hr 09/04/24 22:50 Temperature 96.8 F L Pulse Rate [Left P ulse Oximeter] 69 Respiratory Rate 16 Blood Pressure [Ri ght Upper Arm] 171/99 H Pulse Oximetry 99 Oxygen Delivery Me thod Room Air Documenting provider has reviewed patient's vital signs: yes Course Vital Signs Vital signs: Initial Vital Signs Temperature 96.8 F L 09/04/24 22:50 Temperature Source Temporal Artery Scan 09/04/24 22:50 Pulse Rate 69 09/04/24 22:50 Pulse Rhythm Regular 09/04/24 22:50 Respiratory Rate 16 09/04/24 22:50 Blood Pressure 171/99 H 09/04/24 22:50 Blood Pressure Mean 123 H 09/04/24 22:50 Blood Pressure Position Sitting 09/04/24 22:50 Pulse Oximetry 99 09/04/24 22:50 Oxygen Delivery Method Room Air 09/04/24 22:50 Vital Signs Temperature 96.8 F L 09/04/24 22:50 Pulse Rate 69 09/04/24 22:50 Respiratory Rate 16 09/04/24 22:50 Blood Pressure 171/99 H 09/04/24 22:50 Pulse Oximetry 99 09/04/24 22:50 Oxygen Delivery Method Room Air 09/04/24 22:50 Temperature 96.8 F L 09/04/24 22:50 Pulse Rate 65 09/05/24 00:56 Respiratory Rate 16 09/05/24 00:56 Blood Pressure 174/107 H 09/05/24 00:56 Pulse Oximetry 100 09/05/24 00:56 Oxygen Delivery Method Room Air 09/05/24 00:56 Medications Administered Medications: Discontinued Medications Generic Name Dose Route Start Last Admin Trade Name Miltonq PRN Reason Stop Dose Admin Ondansetron HCl 4 mg 09/04/24 23:52 09/04/24 23:56 Ondansetron Odt 4 Mg Tab PO 09/04/24 23:53 4 mg ONCE ONE Administration Medical Decision Making MDM Narrative Medical decision making narrative: With recent history I would rescan her head. Also head injury prompting imaging. Does not appear to have sustained significant facial injury. Head CT independently reviewed by me looks to be without acute abnormality. Radiology over-read below Fall with head and nasal bridge injury Technique: Noncontrast CT through the head with multiplanar reformats Comparison: CT head performed 03/14/2012 Findings: Brain: No acute hemorrhage. No acute infarct. No significant mass effect or midline shift. No gross evidence of a mass lesion or cerebral edema. Ventricles: No acute abnormality appreciated. Orbits, sinuses, mastoids: No acute abnormality appreciated. Calvarium and soft tissues: No acute abnormality appreciated. Impression: No acute abnormality appreciated. I did discuss this case with on-call neurology. It is not clear that there is worsening of symptoms at this time. Records were reviewed. Not unexpected some mild rebound in symptoms following discontinuation of IVIG. Recommendations for close monitoring and presentation the if symptoms clearly worsening. Has neurology follow-up. See patient discharge plan for further discussion Stay well hydrated with water. Try to get quality and regular sleep. Would be seen tomorrow as discussed if you are worsening; increasing weakness and numbness. Medical Records Medical records reviewed: Yes I reviewed the patient's medical records Discharge Plan Discharge Clinical Impression: Left leg weakness, Guillain-[place] syndrome, Closed head injury Patient Disposition: Home w/ Parent or Adult Condition: Stable Additional Instructions: Stay well hydrated with water. Try to get quality and regular sleep. Would be seen tomorrow as discussed if you are worsening; increasing weakness and numbness. Prescriptions: No Action buspirone 15 mg tablet 15 mg PO BID levothyroxine 100 mcg tablet propranolol 10 mg tablet duloxetine 60 mg capsule,delayed release(DR/EC) PO pregabalin 75 mg capsule pregabalin 150 mg capsule celecoxib 200 mg capsule PO gabapentin 300 mg capsule 300 mg PO DAILY Follow Up/Referrals: Anamaria Lea DO [Primary Care Provider] - Stand Alone Forms: [employer] Info Instructions
--- NOTE | 2024-09-04 23:34 | CRLHL7_ITS ---
For Patients: As a result of the Century Cures Act, medical imaging exams and procedure reports are released immediately into your electronic medical record. You may view this report before your referring provider. If you have questions, please contact your health care provider. Indication: Fall with head and nasal bridge injury Technique: Noncontrast CT through the head with multiplanar reformats Comparison: CT head performed 03/14/2012 Findings: Brain: No acute hemorrhage. No acute infarct. No significant mass effect or midline shift. No gross evidence of a mass lesion or cerebral edema. Ventricles: No acute abnormality appreciated. Orbits, sinuses, mastoids: No acute abnormality appreciated. Calvarium and soft tissues: No acute abnormality appreciated. Impression: No acute abnormality appreciated. Please note that all CT scans at this facility use dose modulation, iterative reconstruction, and/or weight-based dosing when appropriate to reduce radiation dose to as low as reasonably achievable. Dictated by Adalid Tracey MD @ 09/05/2024 12:29:11 AM (Electronically Signed)
--- OUTSIDE RECORDS SUMMARY | 2024-09-04 23:41 | XMS_ITS | Clinical Summary ---
Author Organization [employer] [facility] [employer] [facility] Address [place], [place] [address] Care Team Providers Care Shield Operator Name Role Phone Anamaria Lea DO Primary Care Provider [phone] Allergies Active Allergy Reactions Criticality Noted Date Comments Adhesive Rash High 10/14/2015 Ethinyl Estradiol *Unknown 05/04/2024 Ketorolac *Unknown 03/14/2024 patient cannot remember reaction Lactose Diarrhea Low 08/28/2024 Can have in very small amounts Levonorgestrel *Unknown 05/04/2024 Tramadol Itching 05/13/2019 Patient [...] BEFORE A MEAL 90 capsule 9 Active calcium carbonate (CALCIUM 600) 600 mg calcium (1,500 mg) tablet Take 1 tablet by mouth once daily. 0 0 Active Ferrous Gluconate 324 mg (38 mg iron) tablet Take 1 Tablet (324 mg) by mouth once daily with a meal. 0 1 Active ascorbic acid, vitamin C, (Vitamin C) 500 mg tablet Take 1 Tablet (500 mg) by mouth once daily. 0 1 Active cetirizine (ZYRTEC) 10 mg [...] DOSE: 200MG* 9 Tablet 5 3 Active busPIRone (BUSPAR) 15 mg tabletIndications:G AD (generalized anxiety disorder) Take 1 Tablet (15 mg) by mouth two times daily. 180 Tablet 3 4 Active gabapentin (NEURONTIN) 300 mg capsuleIndications: [...] EVERY DAY 90 Capsule 2 4 Active levothyroxine (SYNTHROID) 125 mcg tabletIndications:S ubclinical hypothyroidism TAKE 1 TABLET(125 MCG) BY MOUTH BEFORE BREAKFAST 90 Tablet 2 4 Active celecoxib (CELEBREX) 200 mg capsule Take 200 mg by mouth once daily. Active sennosides (SENNA) 8.6 mg tabletIndications:C onstipation, acute Take 1 Tablet (8.6 mg) by mouth two times daily. 60 Tablet 1 4 Active Echinacea 500 mg cap Take by mouth. 0 0 08/26/20 24 Discontinued(P harmacist change per medication history (E-cancel not sent)) diclofenac topical (VOLTAREN) 1 % gelIndications:Left knee pain, unspecified chronicity APPLY 2 G TOPICALLY TO AFFECTED AREA(S) 4 TIMES DAILY 1 Tube 2 1 08/26/20 24 Discontinued(P harmacist change per medication history (E-cancel not sent)) Bacillus coagulans (Digestive Advantage Probio-Pre) 400 million cell chew Chew by mouth. 0 1 08/26/20 24 Discontinued(P harmacist change per medication history (E-cancel not sent)) celecoxib (CELEBREX) 200 mg capsuleIndications: Lumbar facet arthropathy Take 1 Capsule (200 mg) by mouth two times daily with meals. 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 Tobacco dependence 07/29/2024 Restless legs syndrome (RLS) [...] Encounters Date Type Department Care Team Description 09/03/2024 2:00 PM LIVESTOCK INSPECTOR Ancillary Procedure [facility] [address] [facility] [place] [address] Arrived 09/03/2024 1:00 PM LIVESTOCK INSPECTOR Office Visit [facility] [address] [place] [address] Pita Wyman MD Hospital F/U (08/26/24/Still having left leg numbness) 09/03/2024 Travel 09/02/2024 Patient Outreach [facility] [address] [place] [address] Meaghan Eduardo, FELICIANO Primary RN Care Management; Hospital F/U ([facility] 50) 08/28/2024 Travel 08/26/2024 4:02 AM LIVESTOCK INSPECTOR - 08/31/2024 2:06 PM LIVESTOCK INSPECTOR Hospital Encounter [facility] [address] [place] [address] [facility] Hospitalists Of Beto Cooney MD Williams, Thomas Vincent, MD Guillain Carlisle syndrome (HC) (Primary Dx) Discharge Disposition: Home Health 08/15/2024 Telephone [facility] [address] [place] [address] Pavel Morgan MD Work Note (Need note for work ) 08/12/2024 Telephone [facility] [address] [place] [address] Pavel Morgan MD Results 08/08/2024 1:15 PM CDT Ancillary Procedure [facility] [address] [place] [address] 08/08/2024 Travel 08/05/2024 Telephone [facility] [address] [facility] [place] [address] Pavel Morgan MD Appointment 07/29/2024 7:30 AM CDT Office Visit [facility] [address] [facility] [place] [address] Julian Moore MD Concerns (Voice going in and out- last few months. Did happen once last year. No sickness when it happens. ); Immunization/Injectio n 07/29/2024 Travel 07/24/2024 11:30 AM CDT Ancillary Procedure [facility] [address] [facility] [place] [address] 07/24/2024 10:40 AM CDT Office Visit [facility] [address] [facility] [place] [address] Pavel Morgan MD Musculoskeletal Problem (Follow up back pain) 07/24/2024 Travel 06/21/2024 Orders Only [facility] Scanner 1 scan: (1-Ord) [facility], 06/21/2024 from Last [...] or isolated from those around you? 0 08/28/2024 Alcohol Use Answer Date Recorded How often do you have a drink containing alcohol ? 2 12/19/2023 How many drinks containing a lcohol do you have on a typical day when you are drinking? 0 12/19/2023 How often do you have five or more drinks on one occasion? 0 12/19/2023 Financial Resource Strain Answer Date R ecorded Difficulty of Paying Living Expenses Not on file 08/28/2024 Difficulty of Paying Living Expenses 3 08/28/2024 Food Insecurity Answer Date Recorded Do you worry your food will run out before you are able to buy more? 1 08/28/2024 Transportation Needs Answer Date Record ed Does lack of transportation keep you from medica l appointments? 1 08/28/2024 Does lack of transportation keep you from work, meetings or getting things that you need? 1 08/28/2024 Housing Stability Answer Date Recorded What is your housing situation today? 1 08/28/2024 Sex and Gender Information Value Date Recorded [...] Sign Reading Time Taken Comments Blood Pressure 117/76 09/03/2024 1:05 PM LIVESTOCK INSPECTOR Pulse 80 09/03/2024 1:05 PM LIVESTOCK INSPECTOR Temperature 36 C (96.8 F) 08/31/2024 8:10 AM LIVESTOCK INSPECTOR Respiratory Rate 18 08/31/2024 8:10 AM LIVESTOCK INSPECTOR Oxygen Saturation 98% 09/03/2024 1:05 PM LIVESTOCK INSPECTOR Inhaled Oxygen Concentration - - Weight 66.4 kg (146 lb 6.4 oz) 05/09/2024 11:14 AM CDT Height 164.6 cm (5' 4.8) 01/16/2024 10:22 AM CD T Body Mass Index 24.51 01/16/2024 10:22 AM CDT Plan of Treatment Upcoming Encounters Date Type Department Care Team (Late st Contact Info) Description 09/11/2024 1:05 PM LIVESTOCK INSPECTOR Office Visit [facility] [address] [place] [address] Anamaria Lea DO [address] [place] [address] 09/19/2024 11:15 AM LIVESTOCK INSPECTOR Office Visit [address] [id number] Tarik Park-João Dangelo MD [address] [facility] [address] [address] Health Maintenance Due Date Last Done Comments Pneumococcal series for age 6-64 (1 of 2 - PCV) 1976 Mammogram for age 45-75 09/15/2023 09/15/20, 08/27/2021, 07/31/2020, Additional history exists Pap test for age 21-65 05/30/2024 9, 05/30/2019, 10/21/2015, Additional history exists COVID-19 vaccine series ( season) 2024 08/30/2022, 09/23/2021, 12/01/2020, Additional history [...] Procedure Name Priority Date/Time Associated Diagnosis Comments XR ABDOMEN 1 VIEW Routine 09/03/2024 2:0 7 PM LIVESTOCK INSPECTOR Acute diarrhea SCAN-CARDIAC STRIP 08/31/2024 6: 34 AM LIVESTOCK INSPECTOR SCAN-CARDIAC STRIP 08/30/2024 6: 29 AM LIVESTOCK INSPECTOR PLATELET COUNT Timed 08/29/2024 10:00 AM LIVESTOCK INSPECTOR SCAN-CARDIAC STRIP 08/29/2024 1: 42 AM LIVESTOCK INSPECTOR MR HEAD BRAIN WWO Routine 08/28/2024 6:4 8 PM LIVESTOCK INSPECTOR SCAN-CARDIAC STRIP 08/28/2024 1: 33 AM LIVESTOCK INSPECTOR WHITE BLOOD COUNT Early AM 08/27/2024 7:0 9 AM LIVESTOCK INSPECTOR SCAN-CARDIAC STRIP 08/27/2024 1: 18 AM LIVESTOCK INSPECTOR MR SPINE CERVICAL WO Routine 08/26/2024 8:15 PM LIVESTOCK INSPECTOR IGA Today 08/26/2024 12:38 PM LIVESTOCK INSPECTOR CBC WITH AUTO DIFFERENTIAL Early AM 08/26/2024 7:53 AM LIVESTOCK INSPECTOR CBC WITH AUTO DIFFERENTIAL Early AM 08/26/2024 7:53 AM LIVESTOCK INSPECTOR BASIC METABOLIC PANEL Early AM 08/26/2024 7:52 AM LIVESTOCK INSPECTOR EKG 12 LEAD RIGOBERTO 08/26/2024 5:47 AM LIVESTOCK INSPECTOR SCAN-CARDIAC STRIP 08/26/2024 5: 44 AM LIVESTOCK INSPECTOR MR SPINE LUMBAR WO Routine 08/08/2024 2: [...] TO QUANT PCR Routine 11/30/2022 12:12 PM LIVESTOCK INSPECTOR Need for hepatitis C screening test XR MAMMO MEGHNA BILAT SCREEN Routine 09/15/2022 4:21 PM LIVESTOCK INSPECTOR Visit for screening mammogram 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 No evidence for any significant colonic constipation. Dictated by Juan Francisco Mcdaniel MD @ 09/03/2024 2:27:46 PM (Electronically Signed) Narrative 09/03/2024 2:27 PM LIVESTOCK INSPECTOR For Patients: As a result of the Cures Act, medical imaging exams and procedure reports are released immediately into your electronic medical record. You may view this report before your referring provider. If you have questions, please contact your health care provider. INDICATION: Acute diarrhea. TECHNIQUE: Supine view of the abdomen and pelvis. FINDINGS: Clear lungs. Surgically absent gallbladder. Scattered gas and stool throughout portions of the colon. No fecal impaction or bowel obstruction. No significant colonic constipation. No radiodense urinary tract calculi. Calcified pelvic phleboliths. Metallic umbilical adornment. Procedure Note Juan Francisco Mcdaniel MD - 09/03/2024 For Patients: As a result of the Cures Act, medical imagingexams and procedure reports are released immediately into your electronicmedical record. You may view this report before your referring provider.If you have questions, please contact your health care provider. INDICATION: Acute diarrhea. TECHNIQUE: Supine view of the abdomen and pelvis. FINDINGS: Clear lungs. Surgically absent gallbladder. Scattered gas and stoolthroughout portions of the colon. No fecal impaction or bowel obstruction.No significant colonic constipation. No radiodense urinary tract calculi.Calcified pelvic phleboliths. Metallic umbilical adornment. IMPRESSION: Nonspecific bowel gas pattern without obstruction or ileus. No evidencefor any significant colonic constipation. Dictated by Juan Francisco Mcdaniel MD @ 09/03/2024 2:27:46 PM (Electronically Signed) Pita Wyman MD GENERAL IM AGING * SCAN-CARDIAC STRIP (08/31/2024 6:34 AM LIVESTOCK INSPECTOR) Scanner OTHER * SCAN-CARDIAC STRIP (08/30/2024 6:29 AM LIVESTOCK INSPECTOR) Scanner OTHER * PLATELET COUNT (08/29/2024 10:00 AM LIVESTOCK INSPECTOR) PLATELET COUNT 316 140 - 440 thou/cu mm 08/29/2024 11:17 AM LIVESTOCK INSPECTOR [facility] MPV 9.8 6.5 - 11.0 fL 08/29/2024 11:17 AM LIVESTOCK INSPECTOR [facility] Blood BLOOD SPECIMEN / Unknown Non-Lab Venipuncture / Unknown 08/29/2024 10:00 AM LIVESTOCK INSPECTOR 08/29/2024 11:02 AM LIVESTOCK INSPECTOR Narrative [facility] - 08/29/2024 11:17 AM LIVESTOCK INSPECTOR With am labs while on heparin or LMWH per hospital policy Bindu Nicolas NP HEMATOLOGY [facility] [address] [place] [address], * SCAN-CARDIAC STRIP (08/29/2024 1:42 AM LIVESTOCK INSPECTOR) Scanner OTHER * MR HEAD BRAIN WWO (08/28/2024 6:48 PM LIVESTOCK INSPECTOR) Anatomical Region Laterality Modality BRAIN, HEAD Magnetic Resonan ce 08/29/2024 7:35 AM LIVESTOCK INSPECTOR Impressions 08/29/2024 7:35 AM LIVESTOCK INSPECTOR 1. No acute intracranial abnormality 2. Normal brain parenchymal morphology. Increased scattered foci of T2 signal within the white matter of both cerebral hemispheres are nonspecific and may represent chronic deep white matter small vessel ischemic changes or sequela of migraine headache 3. No acute or chronic intracranial hemorrhage. 4. No abnormal enhancement or enhancing lesions. 5. Tiny right mastoid effusion Dictated by Jr Jama MD @ 08/29/2024 7:35:49 AM (Electronically Signed) Narrative 08/29/2024 7:35 AM LIVESTOCK INSPECTOR For Patients: As a result of the Cures Act, medical imaging exams and procedure reports are released immediately into your electronic medical record. You may view this report before your referring provider. If you have questions, please contact your health care provider. INDICATION: Left-sided weakness. COMPARISON: 03/24/2014. TECHNIQUE: Multiplanar T1, T2, FLAIR and diffusion-weighted imaging.. Post gadolinium T1 weighted sequences. FINDINGS: Normal brain parenchymal morphology. Increased scattered foci of T2/FLAIR signal hyperintensity within the white matter both cerebral hemispheres are nonspecific and may represent chronic deep white matter small vessel ischemic changes or sequela migraine headache. No intracranial hemorrhage. No abnormal ventricular dilatation. Intracranial vascular flow voids are preserved. No mass effect or midline shift. No restricted diffusion to suggest acute ischemia. No susceptibility artifact of remote hemorrhage. No abnormal enhancement or enhancing lesions within the brain parenchyma. Bilateral orbits are unremarkable. Normal appearing sella. Visualized paranasal sinuses are unremarkable. Tiny right mastoid effusion. Procedure Note Jr Jama MD, PhD - 08/29/2024 For Patients: As a result of the Cures Act, medical imagingexams and procedure reports are released immediately into your electronicmedical record. You may view this report before your referring provider.If you have questions, please contact your health care provider. INDICATION: Left-sided weakness. COMPARISON: 03/24/2014. TECHNIQUE: Multiplanar T1, T2, FLAIR and diffusion-weighted imaging.. Post gadoliniumT1 weighted sequences. FINDINGS: Normal brain parenchymal morphology. Increased scattered foci of T2/FLAIRsignal hyperintensity within the white matter both cerebral hemispheresare nonspecific and may represent chronic deep white matter small vesselischemic changes or sequela migraine headache. No intracranial hemorrhage.No abnormal ventricular dilatation. Intracranial vascular flow voids arepreserved. No mass effect or midline shift. No restricted diffusion to suggest acute ischemia. No susceptibility artifact of remote hemorrhage. No abnormal enhancement or enhancing lesions within the brainparenchyma. Bilateral orbits are unremarkable. Normal appearing sella. Visualized paranasal sinuses are unremarkable. Tiny right mastoideffusion. IMPRESSION: 1. No acute intracranial abnormality 2. Normal brain parenchymal morphology. Increased scattered foci of [id number] within the white matter of both cerebral hemispheres arenonspecific and may represent chronic deep white matter small vesselischemic changes or sequela of migraine headache 3. No acute or chronic intracranial hemorrhage. 4. No abnormal enhancement or enhancing lesions. 5. Tiny right mastoid effusion Dictated by Jr Jama MD @ 08/29/2024 7:35:49 AM (Electronically Signed) Yoana Flaherty NP MR * SCAN-CARDIAC STRIP (08/28/2024 1:33 AM LIVESTOCK INSPECTOR) Scanner OTHER * WBC AM (08/27/2024 7:09 AM LIVESTOCK INSPECTOR) WHITE BLOOD COUNT 9.1 4.5 - 11.0 thou/cu mm 08/27/2024 7:51 AM LIVESTOCK INSPECTOR [facility] NRBC 0.0 % 08/27/2024 7:51 AM LIVESTOCK INSPECTOR [facility] ABS NRBC 0.0 thou /cu mm 08/27/2024 7:51 AM LIVESTOCK INSPECTOR [facility] Blood BLOOD SPECIMEN / Unknown Venipuncture / Unknown 08/27/2024 7:09 AM LIVESTOCK INSPECTOR 08/27/2024 7:41 AM LIVESTOCK INSPECTOR Gage Suero MD HEMATOLOGY [facility] [address] [place] [address], * SCAN-CARDIAC STRIP (08/27/2024 1:18 AM LIVESTOCK INSPECTOR) Scanner OTHER * MR SPINE CERVICAL WO CONTRAST (08/26/2024 8:15 PM LIVESTOCK INSPECTOR) Anatomical Region Laterality Modality Spine, CERVICAL SPINE Magnetic R esonance 08/27/2024 8:49 AM LIVESTOCK INSPECTOR Impressions 08/27/2024 8:49 AM LIVESTOCK INSPECTOR 1. Motion artifact. 2. Normal alignment. No fractures 3. At C5-6, progressive disc degeneration. Moderate narrowing of the spinal canal 4. At C6-7, mild narrowing of the left neural foramen. Dictated by Jr Jama MD @ 08/27/2024 8:49:26 AM (Electronically Signed) Narrative 08/27/2024 8:49 AM LIVESTOCK INSPECTOR For Patients: As a result of the Cures Act, medical imaging exams and procedure reports are released immediately into your electronic medical record. You may view this report before your referring provider. If you have questions, please contact your health care provider. INDICATION: Hyper-reflexia. COMPARISON: 03/24/2014. TECHNIQUE: Sagittal T1, T2, and STIR sequences. Axial T2/gradient sequences. FINDINGS: Motion artifact. Normal vertebral body and facet alignment. No fractures. No vertebral body loss of height. No spondylolisthesis. No ligamentous injury. No suspicious osseous lesions. Normal cord signal. No intradural mass or lesion. C1-2: No spinal canal narrowing. C2-3: Disc degeneration and posterior disc bulge. No narrowing of the spinal canal. No neural foraminal narrowing. C3-4: Disc degeneration and posterior disc bulge or disc osteophyte complex. No narrowing of spinal canal. No neural foraminal narrowing. C4-5: Disc generation posted disc bulge or disc osteophyte complex. No narrowing of the spinal canal. No neural foraminal narrowing. C5-6: Progressive disc degeneration. Posterior disc bulge disc osteophyte complex. Effacement of the ventral thecal sac. Moderate narrowing of spinal canal. Mild narrowing of the bilateral foramina. C6-7: Disc generation and posterior disc bulging disc osteophyte complex. No narrowing of spinal canal. Mild narrowing of the left neural foramen. No narrowing of the right neural foramen. C7-T1: No spinal canal or neural foraminal narrowing. No spinal canal or neural foraminal narrowing in the visualized upper thoracic spine. Procedure Note Jr Jama MD, PhD - 08/27/2024 For Patients: As a result of the 21st Century Cures Act, medical imagingexams and procedure reports are released immediately into your electronicmedical record. You may view this report before your referring provider.If you have questions, please contact your health care provider. INDICATION: Hyper-reflexia. COMPARISON: 03/24/2014. TECHNIQUE: Sagittal T1, T2, and STIR sequences. Axial T2/gradient sequences. FINDINGS: Motion artifact. Normal vertebral body and facet alignment. No fractures. No vertebral bodyloss of height. No spondylolisthesis. No ligamentous injury. No suspiciousosseous lesions. Normal cord signal. No intradural mass or lesion. C1-2: No spinal canal narrowing. C2-3: Disc degeneration and posterior disc bulge. No narrowing of thespinal canal. No neural foraminal narrowing. C3-4: Disc degeneration and posterior disc bulge or disc osteophytecomplex. No narrowing of spinal canal. No neural foraminal narrowing. C4-5: Disc generation posted disc bulge or disc osteophyte complex. Nonarrowing of the spinal canal. No neural foraminal narrowing. C5-6: Progressive disc degeneration. Posterior disc bulge disc osteophytecomplex. Effacement of the ventral thecal sac. Moderate narrowing ofspinal canal. Mild narrowing of the bilateral foramina. C6-7: Disc generation and posterior disc bulging disc osteophyte complex.No narrowing of spinal canal. Mild narrowing of the left neural foramen.No narrowing of the right neural foramen. C7-T1: No spinal canal or neural foraminal narrowing. No spinal canal or neural foraminal narrowing in the visualized upperthoracic spine. IMPRESSION: 1. Motion artifact. 2. Normal alignment. No fractures 3. At C5-6, progressive disc degeneration. Moderate narrowing of thespinal canal 4. At C6-7, mild narrowing of the left neural foramen. Dictated by Jr Jama MD @ 08/27/2024 8:49:26 AM (Electronically Signed) Henny Bryantkiley SOLIS MR * IGA (08/26/2024 12:38 PM LIVESTOCK INSPECTOR) IGA 123.75 84.50 - 499.00 mg/dL 08/27/2024 12:36 PM [facility] Blood BLOOD SPECIMEN / Unknown Venipuncture / Unknown 08/26/2024 12:38 PM LIVESTOCK INSPECTOR 08/26/2024 1:26 PM [facility] Henny BATRES CHEMISTRY [facility] [address] [place] [address], * (ABNORMAL) CBC WITH AUTO DIFFERENTIAL (08/26/2024 7:53 AM LIVESTOCK INSPECTOR) WHITE BLOOD COUNT 11.9(H) 4.5 - 11.0 thou/cu mm 08/26/2024 8:17 AM [facility] RED BLOOD COUNT 4.41 4.00 - 5.20 mil/cu mm 08/26/2024 8:17 AM [facility] HEMOGLOBIN 14.6 12.0 - 16.0 g/dL 08/26/2024 8:17 AM [facility] HEMATOCRIT 41.3 33.0 - 51.0 % 08/26/2024 8:17 AM [facility] MCV 94 80 - 100 fL 08/26/2024 8:17 AM [facility] MCH 33.1 26.0 - 34.0 pg 08/26/2024 8:17 AM [facility] MCHC 35.4 32.0 - 36.0 g/dL 08/26/2024 8:17 AM [facility] RDW 12.5 11.5 - 15.5 % 08/26/2024 8:17 AM [facility] PLATELET COUNT 314 140 - 440 thou/cu mm 08/26/2024 8:17 AM [facility] MPV 9.3 6.5 - 11.0 fL 08/26/2024 8:17 AM [facility] NRBC 0.0 % 08/26/2024 8:17 AM [facility] ABS NRBC 0.0 thou /cu mm 08/26/2024 8:17 AM [facility] % NEUT 66.2 % 08/26/2024 8:17 AM [facility] % LYMPH 24.3 % 08/26/2024 8:17 AM [facility] % MONO 6.6 % 08/26/2024 8:17 AM [facility] % EOS 2.0 % 08/26/2024 8:17 AM [facility] % BASO 0.3 % 08/26/2024 8:17 AM [facility] % IMMATURE GRAN (METAS,MYELOS,MS OS) 0.6 % 08/26/2024 8:17 AM [facility] ABSOLUTE NEUTROPHILS 7.9(H) 1.7 - 7.0 thou/cu mm 08/26/2024 8:17 AM [facility] ABSOLUTE LYMPHOCYTES 2.9 0.9 - 2.9 thou/cu mm 08/26/2024 8:17 AM [facility] ABSOLUTE MONOCYTES 0.8 <0.9 thou/cu mm 08/26/2024 8:17 AM [facility] ABSOLUTE EOSINOPHILS 0.2 <0.5 thou/cu mm 08/26/2024 8:17 AM [facility] ABSOLUTE BASOPHILS 0.0 <0.3 thou/cu mm 08/26/2024 8:17 AM [facility] ABSOLUTE IMMATURE GRANULOCYTES(MET ,MYELOS,PROS) 0.1 <0.3 thou/cu mm 08/26/2024 8:17 AM [facility] Blood BLOOD SPECIMEN / Unknown Butterfly / Unknown 08/26/2024 7:53 AM LIVESTOCK INSPECTOR 08/26/2024 8:08 AM LIVESTOCK INSPECTOR Saman Abad DO HEMATOLOGY [facility] [address] [place] [address], * (ABNORMAL) BASIC METABOLIC PANEL (08/26/2024 7:52 AM LIVESTOCK INSPECTOR) SODIUM 139 136 - 145 mmol/L 08/26/2024 8:43 AM [facility] POTASSIUM 3.7 3.5 - 5.1 mmol/L 08/26/2024 8:43 AM [facility] CHLORIDE 102 98 - 107 mmol/L 08/26/2024 8:43 AM [facility] CO2,TOTAL 25 22 - 29 mmol/L 08/26/2024 8:43 AM [facility] ANION GAP 12 - 18 08/26/2024 8:43 AM [facility] GLUCOSE 110(H) 70 - 99 mg/dL 08/26/2024 8:43 AM [facility] CALCIUM 9.1 8.8 - 10.4 mg/dL 08/26/2024 8:43 AM [facility] Comment: Reference ranges for this test were updated on 08/13/2024 to reflect our healthy population more accurately. Reference range changes are not retroactively applied to results, but previous results using the same methodology can be interpreted in the context of the new reference range. BUN 9 6 - 20 mg/dL 08/26/2024 8:43 AM [facility] TRA [facility] CREATININE 0.70 0.50 - 0.90 mg/dL 08/26/2024 8:43 AM [facility] BUN/CREAT RATIO 13 10 - 20 4 8:[address] [facility] eGFR >90 >90 mL/min/1. 73m2 08/26/2024 8:43 AM [facility] TRAL LABORATORY Comment:As of 2021, eG FR is calculated by the CKD-EPI creatinine equation without race adjustment. eGFR can be influenced by muscle mass, exercise, and diet. The reported eGFR is an estimation only and is only applicable if the renal function is stable. Blood BLOOD SPECIMEN / Unknown Butterfly / Unknown 08/26/2024 7:52 AM LIVESTOCK INSPECTOR 08/26/2024 8:08 AM LIVESTOCK INSPECTOR Saman Abad DO CHEMISTRY Performing Organization Address [facility] Co de Phone Number [facility] LAB[facility]-CENTRAL LABORATORY [address] [place] [address], * 12 Lead EKG (08/26/2024 5:47 AM LIVESTOCK INSPECTOR) Interpretation Normal sinus rhythm Normal ECG When compared with ECG of 09-Nov-2023 20:50, No significant change was found BEYOND NOW Ventricular Rate 61 BPM BEYOND NOW Atrial Rate 61 BPM BEYOND NOW P-R Interval 126 ms BEYOND NOW QRS Duration 82 ms BEYOND NOW QT 440 ms BEYOND NOW QTc 442 ms BEYOND NOW P Brea 47 degrees BEYOND NOW R Brea 65 degrees BEYOND NOW T Brea 41 degrees BEYOND NOW 08/26/2024 5:47 AM LIVESTOCK INSPECTOR 08/26/2024 6:48 PM LIVESTOCK INSPECTOR Saman Abad DO EKG ORD Performing Organization Address [facility] Co de Phone Number BEYOND NOW [place], [place] * SCAN-CARDIAC STRIP (08/26/2024 5:44 AM LIVESTOCK INSPECTOR) Scanner OTHER * MR SPINE LUMBAR WO (08/08/2024 2:02 PM CDT) Anatomical Region Laterality Modality Spine, LUMBAR SPINE Magnetic Res onance 08/09/2024 11:3 9 AM CDT Narrative 08/09/2024 11:39 AM CDT For Patients: As a result of the [...] 11:39:32 AM (Electronically Signed) Procedure Note Jailyn Turcios DO - 08/09/2024 For Patients: As a result of the 21st Century Cures Act, medical imagingexams and procedure [...] CDT Impressions 07/27/2024 7:19 AM CDT 1. No acute fracture evident radiographically. No malalignment. Dictated by Matti James MD @ 07/27/2024 7:19:59 AM (Electronically Signed) Narrative 07/27/2024 7:19 AM CDT For Patients: As a result of the [...] - 199 mg/dL 01/16/2024 5:10 PM CDT [facility] TRAL LABORATORY Comment: Cholesterol, Total Reference Ranges Desirable <200 mg/dL Borderline 200-239 mg/dL High >=240 mg/dL TRIGLYCERIDES 215(H) <150 mg/dL 01/16/2024 5:10 PM [facility]T [facility] HDL CHOLESTEROL 40(L) >40 mg/dL 5:10 PM CDT [facility] NON-HDL CHOLESTEROL 177(H) <145 mg/dl 01/16/2024 5:10 PM T [facility] CHOL/HDL RATIO 5.43(H) <4.50 01/16/2024 5:10 PM CDT [facility] LDL CHOLESTEROL 134(H) <=130 mg/dL 01/16/2024 5:10 PM T [facility] VLDL CHOLESTEROL 43(H) <=30 mg/dL 01/16/2024 5:10 PM T [facility] LAB[facility] PROVIDER ORDERED STATUS RANDOM 01/16/2024 5:10 PM T [facility] Blood BLOOD SPECIMEN / Unknown Venipuncture / Unknown 01/16/2024 11:01 AM CDT 01/16/2024 11:03 AM CDT Pita Wyman MD CHEMISTRY [facility] [address] [place] [address], * LC HCV ANTIBODY RFX TO QUANT PCR (11/30/2022 12:12 PM LIVESTOCK INSPECTOR) [facility] HCV Ab Non Reactive Non Reactive 12/02/2022 11:09 AM LIVESTOCK INSPECTOR [facility] Blood BLOOD SPECIMEN / Unknown Venipuncture / Unknown 11/30/2022 12:12 PM LIVESTOCK INSPECTOR 11/30/2022 12:13 PM LIVESTOCK INSPECTOR Narrative [facility] - 12/02/2022 11:09 AM LIVESTOCK INSPECTOR Performed at: [address] [place] [address] Drive, [place], [place] [id number] Laundry Room Attendant: Shiv Molina MD, Phone: [phone] Anamaria Lea DO LABORATORY [facility] ([facility]) [address] [place] [address], [place] * XR MAMMO MEGHNA BILAT SCREEN (09/15/2022 4:21 PM LIVESTOCK INSPECTOR) Anatomical Region Laterality Modality BREASTS, Breast Left, Breast Right Bilateral Mammography Impressions 09/16/2022 4:08 PM LIVESTOCK INSPECTOR There is no radiographic evidence for malignancy. Recommend annual mammograms. MAMMOGRAM ASSESSMENT: ACR 1 Negative PATIENTS: You will also receive a letter with your examination results in an easy to read format. If you have questions about your results, please contact your referring provider. Narrative 09/16/2022 4:08 PM LIVESTOCK INSPECTOR For Patients: As a result of the Century Cures Act, medical imaging exams and procedure reports are released immediately into your electronic medical record. You may view this report before your referring provider. If you have questions, please contact your health care provider. XR MAMMO MEGHNA BILAT SCREEN [[id number]] CLINICAL HISTORY: This is an asymptomatic 51 y.o. patient. INDICATION FOR EXAM: Mammogram Screening. TECHNIQUE: CC & MLO views were obtained. This study was evaluated with the assistance of Computer-Aided Detection. Breast Tomosynthesis was used in interpretation. COMPARISON FILM: Yes [email or web address]16[facility]20 [facility] FINDINGS: The breasts are heterogeneously dense, which may obscure small masses. There are no dominant masses, suspicious micro calcifications or areas of architectural distortion. Anamaria Lea DO MAMMO * SHOT CORE DRILL OPERATOR THIN PREP PAP SCREEN IMAGED (05/30/2019 3:46 PM CDT) Case Report Gynecologic Cytology Report Case: [id number] Authorizing Provider: Reina Mathews, Collected: 05/30/2019 1546 PA Ordering Location: [facility] Received: 05/30/2019 1609 Clinic First Screen: Davidson Thao Specimen: SHOT CORE DRILL OPERATOR ThinPrep Vial Screening, Cervical 06/11/2019 2:44 PM CDT [facility] ENTRAL LABORATORY INTERPRETATION/ RESULT NEGATIVE FOR INTRAEPITHELIAL LESION OR MALIGNANCY (NIL) (none) 06/11/2019 2:44 PM CDT [facility] NISM(S) Shift in harrison suggestive of bacterial vaginosis 06/11/2019 2:44 PM CDT [facility] ENTRAL LAB[facility]ATORY SPECIMEN ADEQUACY Satisfactory for evaluation No endocervical component seen 06/11/2019 2:44 PM CDT [facility] EN[facility] LAB[facility] HPV REQUEST HPV and PAP 06/11/2019 2:44 PM CDT [facility] Date of LMP ablation 06/11/2019 2:44 PM CDT [facility] Last Pap Date 10/21/15 06/11/2019 2:44 PM CDT [facility] Last Pap Result NIL 9 2:44 PM CDT [facility] Abnormal Pap or [place] Bx in last 5 years No 06/11/2019 2:44 PM CDT [facility] Menstrual Status Ablation 06/11/2019 2:44 PM CDT [facility] EN[facility]AL LAB[facility] [place] Bx Done Today No 06/11/2019 2:44 PM CDT [facility] Additional Information None given 06/11/2019 2:44 PM CDT [facility] Automated Review Successful 06/11/2019 2:44 PM CDT [facility] EN[facility]AL LAB[facility] Comment:Specimen processed s uccessfully by automated assistant plant control operator device, ThinPrep Imaging System, [employer] ANCILLARY TESTING SHOT CORE DRILL OPERATOR HPV Ordered, Please see separate report 06/11/2019 2:44 PM CDT [facility] Note The pap test is a screening technique, not a diagnostic procedure. It is used primarily to screen for squamous cancers and precursor lesions. Published studies have shown that it is subject to both false negative and false positive results. The pap test should not be used as the sole means to diagnose or exclude pre-malignant and malignant lesions. Cytology is screened and interpreted at [facility] - [address], [place] [address] and [facility] - [address]; [place] [address] and [facility] - [address]; [place] [address] and [facility] [address]; [place] [address] 06/11/2019 2:44 PM CDT [facility] LABORAT[facility]-C ENTRAL LABORATORY Other (Cervical) Non-Blood / Unknown 05/30/2019 3:46 PM CDT 05/30/2019 4:09 PM CDT Re[facility]-CENTRAL LABORATORY [address] [place] [address], [place] * SCAN-COLONOSCOPY (04/14/2017 12:00 AM CDT) Scanner OTHER * HIV (02/18/2010 9:41 AM CDT) ANTI HIV 1/2 Non-reacti ve [facility] Blood specimen (specimen) BLOOD SPECIMEN / Unknown 02/18/2010 9:41 AM CDT 02/18/2010 9:35 AM CDT Jovan Smalls MD SEND OUTS [facility] LAB[facility]ORY INTERNAL ZIP [phone] [address] from Last 3 Months or Most Recently Relevant to Health Maintenance Advance Directives * Full Code (Latest Code Status on File) Date Activated Date Inactivated Comments 08/26/2024 11:04 AM 08/31/2024 4:46 PM Question Answer Comments Code Status Discussion: Reviewed Preferences * Full Code Date Activated Date Inactivated Comments 08/26/2024 4:24 AM 08/26/2024 11:04 AM Question Answer Comments Code Status Discussion: Unable to Assess Preferences, Provider to review later Care Teams Shield Operator Relationship Specialty Start Date End Date Anamaria Lea DO [facility] [id number] PCP - General Family Practice 10/25/19
[2024-09-04] MEDS: ONDANSETRON ODT 4 MG TAB PO (23:56)
[2024-09-05 00:56] VITALS: BP 174/107; PULSE 65; RESP 16; O2SAT 100
== END 2024-09-05 01:43 | disposition home or self-care (01) ==
PROVIDERS: Emergency Provider Family Medicine; PCP Family Medicine
DX: S09.90XA Unspecified injury of head, initial encounter (principal); R53.1 Weakness; G61.0 Guillain-Barre syndrome; W19.XXXA Unspecified fall, initial encounter
CPT/HCPCS: 70450; 99284; A9270